=== PATIENT | male | born 1945 | race Caucasian/White ===

== ENCOUNTER 2020-08-01 | Outpatient (REF) | payer MEDICARE, SELFPAY | END 2020-08-01 00:01 | disposition home or self-care (01) | LOC: HO.VC | PROVIDERS: Visit Provider Internal Medicine | DX: Z23 Encounter for immunization (principal) | CPT/HCPCS: 0011A ==

== ENCOUNTER 2020-08-28 | Outpatient (REF) | payer MEDICARE, SELFPAY | END 2020-08-28 00:01 | disposition home or self-care (01) | LOC: HO.VC | PROVIDERS: Visit Provider Internal Medicine | DX: Z23 Encounter for immunization (principal) | CPT/HCPCS: 0012A ==

== ENCOUNTER 2021-07-22 07:57 | Outpatient (REF) | payer MEDICARE, SELFPAY ==
[2021-07-22 08:33] LABS: Hemoglobin 13.6 g/dl (14.0-18.0); Mean Corpuscular Volume 94.8 fL (80.0-98.0); Red Cell Distribution Width 13.9 % (11.0-16.0)
[2021-07-22 08:34] LABS: Hematocrit 42.1 % (42.0-52.0); Mean Corpuscular HGB Conc 32.3 g/dl (31.0-36.0); Mean Corpuscular Hemoglobin 30.6 pg (27.0-33.0); Red Blood Count 4.44 X10*6/uL (4.60-5.80); White Blood Count 8.1 X10*3/uL (4.8-10.8)
[2021-07-22 08:36] LABS: PLT ABN DIST 1
[2021-07-22 08:55] LABS: Alanine Aminotransferase 15 U/L (0-40); Albumin Level 4.4 g/dL (3.5-5.0); Alkaline Phosphatase 64 U/L (39-117); Aspartate Amino Transferase 21 U/L (5-37); Bilirubin Direct 0.5 mg/dL (0.0-0.5); Bilirubin Total 1.1 mg/dL (0.0-1.0); Cholesterol 133 mg/dL; HDL Cholesterol 33 mg/dL; LDL Cholesterol Calculated 84 mg/dl; Total Protein 6.9 g/dL (6.5-8.0); Triglycerides 81 mg/dL
[2021-07-22 08:56] LABS: Platelet Count 92 X10*3/uL (160-400)
[2021-07-22 08:58] LABS: Appearance Urine CLEAR; Color Urine YELLOW; Glucose Urine UA NEG (NEG); Leukocyte Esterase Urine NEG (NEG); Nitrite Urine NEG (NEG); Urine Blood NEG (NEG); Urine Ketones NEG (NEG); Urine Protein NEG (NEG-TRACE)
== END 2021-07-22 07:58 | disposition home or self-care (01) ==
LOC: HO.LAB 07:57
PROVIDERS: PCP Internal Medicine; Visit Provider Internal Medicine
DX: E78.00 Pure hypercholesterolemia, unspecified (principal)
CPT/HCPCS: 36415; 80061; 80076; 81003; 85027

== ENCOUNTER → 2021-09-02 13:20 | Outpatient (BNV) | payer MEDICARE, SELFPAY | PROVIDERS: PCP Internal Medicine; Referring Provider Internal Medicine; Visit Provider Internal Medicine | DX: D72.829 Elevated white blood cell count, unspecified (principal) | CPT/HCPCS: 99204; 99212; 99213; 99214; 99215; G2211 ==

== ENCOUNTER 2021-09-03 15:15 | Outpatient (REF) | payer MEDICARE, SELFPAY ==
[2021-09-03 15:46] LABS: Hematocrit 42.7 % (42.0-52.0); Hemoglobin 13.7 g/dl (14.0-18.0); Mean Corpuscular HGB Conc 32.1 g/dl (31.0-36.0); Mean Corpuscular Hemoglobin 30.2 pg (27.0-33.0); Mean Corpuscular Volume 94.1 fL (80.0-98.0); Mean Platelet Volume 13.5 fL (9.4-12.4); Red Blood Count 4.54 X10*6/uL (4.60-5.80); Red Cell Distribution Width 14.1 % (11.0-16.0)
[2021-09-03 15:59] LABS: PLT ABN DIST 1; Platelet Count 93 X10*3/uL (160-400); WBC ABN SCTR FOR CBC 1
[2021-09-03 16:00] LABS: White Blood Count 10.6 X10*3/uL (4.8-10.8)
== END 2021-09-03 15:16 | disposition home or self-care (01) ==
LOC: HO.LAB 15:15
PROVIDERS: PCP Internal Medicine; Visit Provider Internal Medicine
DX: D72.829 Elevated white blood cell count, unspecified (principal); D69.6 Thrombocytopenia, unspecified
CPT/HCPCS: 36415; 85027; 88184; 88185

== ENCOUNTER 2021-10-07 08:50 | Outpatient (REF) | payer MEDICARE, SELFPAY ==
--- NOTE | ~2021-10-07 | US_ITS ---
EXAMINATION: US ABDOMEN COMPLETE CLINICAL INFORMATION: Abnormal levels of other serum enzymes. COMPARISON: None TECHNIQUE: Real-time imaging of the abdominal viscera. FINDINGS: PANCREAS: Obscured by bowel gas. ABDOMINAL AORTA: Visualized aorta is normal in caliber however portions are obscured by bowel gas. INFERIOR VENA CAVA: Visualized portions are normal. LIVER: The liver is normal in size. The liver contour is normal. Parenchymal echogenicity is normal. No focal hepatic lesion. There is no intrahepatic biliary duct dilatation seen. GALLBLADDER: Normal. The gallbladder is physiologically distended without evidence of stones, sludge, polyps, wall thickening or pericholecystic fluid. COMMON BILE DUCT: Normal in caliber measuring 0.3 cm in diameter. RIGHT KIDNEY: Normal. No hydronephrosis. No renal calculi or focal parenchymal lesions. The kidney measures 10.1 cm in maximum dimension. LEFT KIDNEY: Normal. No hydronephrosis. No renal calculi or focal parenchymal lesions. The kidney measures 11.2 cm in maximum dimension. SPLEEN: Normal. The spleen measures 9.7 cm in maximum dimension. FREE FLUID: None. US/US abdomen complete IMPRESSION: The pancreas and portions of the aorta were obscured by bowel gas. Otherwise unremarkable abdominal ultrasound.
== END 2021-10-07 08:51 | disposition home or self-care (01) ==
LOC: HO.US 08:50
PROVIDERS: PCP Internal Medicine; Visit Provider Internal Medicine
DX: R74.8 Abnormal levels of other serum enzymes (principal); D69.6 Thrombocytopenia, unspecified
CPT/HCPCS: 76700

== ENCOUNTER 2022-09-25 07:19 | Outpatient (REF) | payer MEDICARE, SELFPAY ==
[2022-09-25 08:18] LABS: Appearance Urine Clear; Color Urine Yellow; Glucose Urine UA Negative (Negative); Leukocyte Esterase Urine Trace (Negative); Nitrite Urine Negative (Negative); Specific Gravity - Urine 1.015 (1.005-1.025); UMIC TRIGGER UA YES; Urine Blood Negative (Negative); Urine Ketones Negative (Negative); Urine Protein Trace mg/dL (Neg-Trace)
[2022-09-25 08:19] LABS: Hematocrit 40.8 % (42.0-52.0); Hemoglobin 13.1 g/dl (14.0-18.0); Mean Corpuscular HGB Conc 32.1 g/dl (31.0-36.0); Mean Corpuscular Hemoglobin 29.6 pg (27.0-33.0); Mean Corpuscular Volume 92.1 fL (80.0-98.0); Mean Platelet Volume 13.7 fL (9.4-12.4); Platelet Count 110 X10*3/uL (160-400); Red Blood Count 4.43 X10*6/uL (4.60-5.80); Red Cell Distribution Width 14.3 % (11.0-16.0); White Blood Count 16.9 X10*3/uL (4.8-10.8)
[2022-09-25 08:24] LABS: Bacteria Urine None Seen (None Seen); Hyaline Casts Urine 0-2 /LPF (0-2); RBC Urine 0-2 /HPF (0-2); Squamous Epithelial Cell Urine 0-2 /HPF (0-2); WBC Urine 0-5 /HPF (0-5)
[2022-09-25 08:52] LABS: Alanine Aminotransferase 14 U/L (0-40); Albumin Level 4.6 g/dL (3.5-5.0); Alkaline Phosphatase 64 U/L (39-117); Anion Gap 12 (12-20); Aspartate Amino Transferase 21 U/L (5-37); Bilirubin Direct 0.3 mg/dL (0.0-0.5); Bilirubin Total 1.3 mg/dL (0.0-1.0); Blood Urea Nitrogen 17 mg/dL (9-16); Calcium 9.6 mg/dL (8.4-10.2); Carbon Dioxide 29 mmol/L (22-29); Chloride 105 mmol/L (96-108); Cholesterol 117 mg/dL; Estimated Glomerular Filt Rate 53; Glucose Random 95 mg/dL (60-115); HDL Cholesterol 28 mg/dL; LDL Cholesterol Calculated 76 mg/dl; Potassium 5.1 mmol/L (3.3-5.1); Sodium 141 mmol/L (135-145); Triglycerides 66 mg/dL
[2022-09-25 09:10] LABS: Thyroid Stimulating Hormone 1.41 uIU/mL (0.32-4.0)
== END 2022-09-25 07:20 | disposition home or self-care (01) ==
LOC: HO.LAB 07:19
PROVIDERS: PCP Internal Medicine; Visit Provider Internal Medicine
DX: I10 Essential (primary) hypertension (principal); D69.6 Thrombocytopenia, unspecified; E78.00 Pure hypercholesterolemia, unspecified
CPT/HCPCS: 36415; 80048; 80061; 80076; 81001; 84443; 85027

== ENCOUNTER 2022-11-04 10:32 | Outpatient (REF) | payer MEDICARE, SELFPAY ==
--- NOTE | ~2022-11-04 | XR_ITS ---
EXAMINATION: XR CHEST CLINICAL INFORMATION: Shortness of breath. CML. Thrombocytopenia. COMPARISON: Chest radiographs 04/27/2017, 11/06/2008 TECHNIQUE: 2 views of the chest were obtained. FINDINGS: The lungs are clear and there is no airspace consolidation or groundglass opacity. The vascularity is normal. The costophrenic sulci are clear and there is no effusion. Heart is within normal size. The hilar and mediastinal contours are unremarkable. No acute bony abnormality. XR/XR chest 2V IMPRESSION: Unremarkable examination.
== END 2022-11-04 10:33 | disposition home or self-care (01) ==
LOC: HO.XRAY 10:32
PROVIDERS: PCP Internal Medicine; Visit Provider Internal Medicine
DX: R06.02 Shortness of breath (principal)
CPT/HCPCS: 71046

== ENCOUNTER 2022-11-13 09:55 | Day surgery (SDC) | payer MEDICARE, SELFPAY ==
[2022-11-13] VITALS (7 sets, daily range): BP systolic 103–156; BP diastolic 60–79; PULSE 70–95; RESP 16–20; TEMP 36.4; O2SAT 97–99; BMI 35.2
--- NOTE | ~2022-11-13 | CT_ITS ---
PROCEDURE: CT-GUIDED BIOPSY CLINICAL INFORMATION: CML. Thrombocytopenia. COMPARISON: None available. TECHNIQUE: Following explaining CT fluoroscopy-guided iliac crest biopsy procedure, benefits and risk, a written consent was obtained. Patient was placed prone on CT fluoroscopy table and preliminary CT imaging was obtained. Lead markers were placed on an optimal slice along the posterior iliac crest and repeat CT imaging was obtained. An optimal marker was selected and marked on the skin. The marker was then cleaned and draped in the usual sterile manner. 1% lidocaine was injected at puncture site. Through a small skin incision a 16-gauge guide needle was advanced from the skin to the level of posterior cortex of posterior iliac crest. A mechanical drill was attached to the needle and the needle was drilled through the cortex into the bone marrow. Subsequently 2 syringes each filled with heparin and EDTA was attached to the needle and simple bone marrow aspiration was performed. Coaxially a 19-gauge needle attached to drill was advanced into the bone marrow and a bone marrow biopsy is performed. After achieving adequate amount of bone marrow sample, the guide needle was removed and complete hemostasis achieved at puncture site. Simple Band-Aid applied postprocedure. Patient tolerated procedure extremely well. IV conscious sedation was administered and patient monitored for 15 minutes by IR nurse and the radiologist. This CT examination was performed using dose optimization techniques as appropriate, variously including the following: *Automated exposure control *Adjustment of mA and/or kV according to patient size (this includes techniques or standardized protocols for targeted exams where dose is matched to indication/reason for exam; i.e. extremities or head) *Use of iterative reconstruction technique DLP: 311 mGy-cm FINDINGS: On preliminary ultrasound imaging there is scattered stool and gas seen throughout the colon without any significant distention. The small bowel loops are normal caliber. The urinary bladder is nondistended. CT fluoroscopy-guided left iliac crest bone marrow biopsy was performed. Initially bone marrow aspiration was performed x2. CT/CT biopsy aspirate bone marrow IMPRESSION: Successful CT fluoroscopy-guided bone marrow aspiration and left posterior iliac crest biopsy performed.
[2022-11-13 10:29] LABS: Hematocrit 39.1 % (42.0-52.0); Hemoglobin 12.4 g/dl (14.0-18.0); Mean Corpuscular HGB Conc 31.7 g/dl (31.0-36.0); Mean Corpuscular Hemoglobin 29.6 pg (27.0-33.0); Mean Corpuscular Volume 93.3 fL (80.0-98.0); Mean Platelet Volume 12.7 fL (9.4-12.4); Red Blood Count 4.19 X10*6/uL (4.60-5.80); Red Cell Distribution Width 15.3 % (11.0-16.0); White Blood Count 17.1 X10*3/uL (4.8-10.8)
[2022-11-13 10:30] LABS: Platelet Count 98 X10*3/uL (160-400)
[2022-11-13 10:36] LABS: INTERNATIONAL NORM RATIO 1.2 (0.9-1.1); Prothrombin Time 13.4 SEC (10.0-13.1)
[2022-11-13 10:38] LABS: Partial Thromboplastin Time 34.6 SEC (26.0-36.4)
[2022-11-13 11:54] LABS: Band Neutrophils Percent 1 % (3-5); Basophils Abs Manual 0.2 X10*3/uL (0.0-0.2); Basophils Percent Manual 1 % (0-2); Eosinophils Absolute Manual 0.2 X10*3/uL (0.0-0.4); Eosinophils Percent Manual 1 % (0-4); Lymphocytes Absolute Manual 3.6 X10*3/uL (1.2-4.9); Lymphocytes Percent Manual 21 % (20-40); Metamyelocytes Absolute 0.3 X10*3/uL; Metamyelocytes Percent 2 %; Monocytes Absolute Manual 4.4 X10*3/uL (0.1-1.2); Monocytes Percent Manual 26 % (2-11); Myelocytes Absolute 0.2 X10*/uL; Myelocytes Percent 1 %; Neutrophils Absolute Manual 8.2 X10*3/uL (2.0-8.3); Neutrophils Percent Manual 47 % (45-73)
[2022-11-13 11:58] LABS: Polychromasia 1+ (0-2) /OIF; RBC Morphology NOTED; Spherocytes 2+ (3-5) /OIF
[2022-11-13 11:59] LABS: Platelet Estimate DECREASED (NORMAL); Platelet Morphology Comment NORMAL
[2022-11-13 12:38] LABS: Bone Marrow SEE SEPARATE REPORT
== END 2022-11-13 14:36 | disposition home or self-care (01) ==
PROVIDERS: Internal Medicine; PCP Internal Medicine; Visit Provider Radiology Diagnostic Radiology
DX: D72.829 Elevated white blood cell count, unspecified (principal); D69.6 Thrombocytopenia, unspecified; I10 Essential (primary) hypertension
CPT/HCPCS: 36415; 38221; 38222; 85007; 85025; 85027; 85610; 85730; 88184; 88185; 88237; 88264; 88305; 88311; 88313; 88341; 88342; 99152; J1642; J2250; J3010

== ENCOUNTER 2023-02-19 08:08 | Outpatient (AMB) | payer MEDICARE, SELFPAY ==
[2023-02-19 08:16] VITALS: BP 122/70; PULSE 80; O2SAT 98; BMI 36.6
--- NOTE | 2023-02-19 08:16 | A.OFFPC_ITS ---
Vital Signs 02/19/23 08:16 Height 5 ft 7 in Weight 234 lb BMI 36.6 BP 122/70 Blood Pressure Location Lt brachial Position Sitting Pulse 80 Pulse Source Pulse Oximeter Pulse Oximetry (%) 98 Oxygen Delivery Method Room Air Intake Visit Reasons: 6 month follow up Allergies No Known Allergies [No Known Allergies*] Allergy (Unknown, Verified 02/19/23 08:29) Medication List - Last Reconciled 02/19/23 by Tarik Birch MD lisinopril 10 mg PO DAILY simvastatin 20 mg PO BEDTIME Tobacco use date assessed: 08/14/22 Fall risk assessment: No Falls in past year Last assessed Fall Risk: 02/19/23 Dental Screening Dental Screen Date: 02/19/23 Did you have a dental visit in the last 12 months?: Yes Did you have a dental problem in the last 6 months where you did not have access to dental care?: No Was dental information given to patient?: Patient has dentist HPI 6 month follow up HPI Details 77 year male presents to the office to discuss his chronic medical co nditions. Patient had blood work done in December and continues to have thrombocytopenia andanemia. Compliant with medications and reporting no shortness of breath. Patient off late has been feeling a bit winded and tired. He is able to do his activities but makes him tired at the end of the day. Sleeps with 1 pillow and reports no symptoms of cough. No swelling in the feet. Also has noticed increased frequency of urination at night. [facility] Medical History (Updated 02/19/23 @ 08:38 by Tarik Birch MD) Class 2 severe obesity with body mass index (BMI) of 35 to 39.9 with serious comorbidity Essential hypertension Hypercholesterolemia Leucocytosis Surgical History History of brain surgery History of gastric surgery History of hernia surgery History of knee replacement procedure of left knee History of knee replacement procedure of right knee History of mastectomy History of tonsillectomy and adenoidectomy Family History Mother Esophageal adenocarcinoma Brother Kidney malignancy Brother Adrenal cancer Sister Bile duct cancer Social History Household Members: Spouse Housing: House Alcohol intake: current Alcohol intake frequency: 0-2 drinks per day Patient Tobacco Use Status: Former Tobacco user Tobacco use type: Cigarette e-Cigarette/Vaping Use: Never Used Second Hand Smoke Exposure: No service: No Current occupational status: retired Cognitive needs: No Hearing needs: No Vision needs: Yes (glasses) Questionnaire PHQ-9 Over the last 2 weeks, how often have you been bothered by any of the following problems? 1. Little interest or pleasure in doing things: not at all 2. Feeling down, depressed, or hopeless: not at all 3. Trouble falling or staying asleep, or sleeping too much: not at all 4. Feeling tired or having little energy: not at all 5. Poor appetite or overeating: not at all 6. Feeling bad about yourself - or that you are a failure or have let yourself or your family down: not at all 7. Trouble concentrating on things, such as reading the newspaper or watching television: not at all 8. Moving or speaking so slowly that other people could have noticed. Or the opposite - being so fidgety or restless that you have been moving around a lot more than usual: not at all 9. Thoughts that you would be better off or of hurting yourself in some way: not at all Total score: 0 Depression Screening Interpretation: Negative 04288 - PHQ-9 Billing: Yes Source: Developed by Drs. Brendon Tavarez, Maxim Moscoso and colleagues, with an educational madhu from [employer]. Thrive Questionnaire Date Thrive assessed: 08/14/22 AUDIT C Alcohol Use Questionnaire (AUDIT-C) 1. How often do you have a drink containing alcohol?: 4 or more times a week 2. How many drinks containing alcohol do you have on a typical day when you are drinking?: 1 or 2 3. How often do you have six or more drinks on one occasion?: Never Total Score: 4 HARDY-7 AMB Questionnaire HARDY-7 Date HARDY - 7 assessed: 08/14/22 Source: Developed by Drs. Brendon Tavarez, Maxim Moscoso and colleagues, with an educational madhu from [employer]. Physical exam (Primary Care) Vital Signs: Last Vital Signs Pulse 80 08/24/23 08:16 BP 122/70 02/19/23 08:16 Pulse Ox 98 02/19/23 08:16 Oxygen Delivery Method Room Air 02/19/23 08:16 Care Plan Goal for BP management: Blood pressure is in range. Continue medications at same dosage. BMI result Body Mass Index 36.6 BMI Assessment/Plan discussion: High (1 lb per week weight loss suggested.) BMI High, discussed plan: lifestyle, weight reduction and dietary Tobacco/Smoking Status: Tobacco use Status Tobacco use date assessed 08/14/22 02/19/23 08:20 Patient Tobacco Use Status Former Tobacco user 02/19/23 08:20 Tobacco use type Cigarette 02/19/23 08:20 e-Cigarette/Vaping Use Never Used 02/19/23 08:20 PHQ-9: PHQ-9 Score PHQ-9: Total score 0 02/19/23 08:20 Depression Screening Interpretation: Negative Thrive Assessment: Date of Thrive Assessment Date Thrive assessed 08/14/22 02/19/23 08:20 Const General: cooperative, healthy appearing and comfortable HENMT Head: Yes normal to inspection and Yes atraumatic Eyes General: appearance normal, both eyes and all related structures Neck Neck: Yes normal visual inspection and Yes full ROM Chest Chest palpation & inspection: normal inspection of the chest Resp Effort & Inspection: normal respiratory effort Auscultation: clear to auscultation bilaterally Cardio Jugular venous distension: no JVD Palpation: normal PMI Rate: regular rate Heart sounds: S1 normal heart sound present and S2 normal heart sound present GI Palpation (GI): Soft to palpation and No hepatosplenomegaly present Extrem General: Yes normal to inspection and Yes full ROM Assessment and Plan Assessment & Plan (1) Hypercholesterolemia: Code(s): E78.00 - Pure hypercholesterolemia, unspecified Plan: Blood work done earlier this year shows LDL in range. Continue medications at same dosage. (2) Leucocytosis: Code(s): D72.829 - Elevated white blood cell count, unspecified Plan: Recent blood work done in December shows the white count coming down. Platelet counts are stable. Patient has an appointment with the sales and marketing administrator. I encouraged him to keep the same appointment. (3) Essential hypertension: Code(s): I10 - Essential (primary) hypertension Plan: Blood pressure is in range. Continue same medications. (4) Class 2 severe obesity with body mass index (BMI) of 35 to 39.9 with serious comorbidity: Code(s): E66.01 - Morbid (severe) obesity due to excess calories Plan: Counseling on the importance of diet and exercise done. Medications: Discontinued simvastatin 20 mg PO DAILY 90 tabs 1RF Coding Level of Care Code Est Pt Level 4 (12613) Diagnoses Hypercholesterolemia E78.00 Leucocytosis D72.829 Essential hypertension I10 Class 2 severe obesity with body mass index (BMI) of 35 to 39.9 with serious comorbidity E66.01
== END 2023-02-19 08:30 | disposition home or self-care (01) ==
PROVIDERS: Visit Provider Internal Medicine
DX: E78.00 Pure hypercholesterolemia, unspecified (principal); D72.829 Elevated white blood cell count, unspecified; I10 Essential (primary) hypertension
CPT/HCPCS: 99214

== ENCOUNTER 2023-09-14 10:40 | Outpatient (AMB) | payer MEDICARE, SELFPAY ==
--- NOTE | 2023-09-14 11:09 | A.OFFPC_ITS ---
Vital Signs 09/14/23 11:11 Height 5 ft 7 in Weight 235 lb 6 oz BMI 36.9 BP 110/68 Blood Pressure Location Lt brachial Position Sitting Pulse 79 Pulse Source Pulse Oximeter Pulse Oximetry (%) 98 Oxygen Delivery Method Room Air Intake Visit Reasons: 6 month follow up Intake Note: Patient is here to follow up on HTN, Hypercholesterolemia. Senior Front End Web Developer Required: No Police Liaison Officer: Not Required per policy Accompanied by: Self / Same As Patient Allergies No Known Allergies [No Known Allergies*] Allergy (Unknown, Verified 09/16/23 06:16) Medication List - Last Reconciled 09/14/23 by Tarik Birch MD ascorbic acid (vitamin C) (Vitamin C) 250 mg PO DAILY cholecalciferol (vitamin D3) (Vitamin D3) 10 mcg PO DAILY hydroxyurea 500 mg PO DAILY multivitamin DAILY simvastatin 20 mg PO BEDTIME vitamins A,C,T-dsdt-hwnsgi 2,148 mcg-113 mg-45 mg-17.4mg (PreserVision AREDS) administer with AM and PM meals Tobacco use date assessed: 09/14/23 Fall risk assessment: No Falls in past year Last assessed Fall Risk: 09/14/23 Dental Screening Dental Screen Date: 09/14/23 Did you have a dental visit in the last 12 months?: Yes Did you have a dental problem in the last 6 months where you did not have access to dental care?: No Was dental information given to patient?: Patient has dentist HPI 6 month follow up HPI Details 78-year-old male presents to the office to discuss his chronic medical conditions. Patient continues to have baseline tinnitus and itching in the left ear. Compliant with all his medications. Reports some urinary hesitancy since the last visit. Occasional urinary incontinence. Able to function and do all activities of daily living. Continues to drive. Continues to be in charge of his finances. [facility] Medical History Class 2 severe obesity with body mass index (BMI) of 35 to 39.9 with serious comorbidity Leucocytosis Essential hypertension Hypercholesterolemia Surgical History History of gastric surgery History of hernia surgery History of tonsillectomy and adenoidectomy History of mastectomy History of brain surgery History of knee replacement procedure of right knee History of knee replacement procedure of left knee Family History Mother Esophageal adenocarcinoma Brother Kidney malignancy Brother Adrenal cancer Sister Bile duct cancer Social History Household Members: Spouse Housing: House Alcohol intake: current Alcohol intake frequency: 0-2 drinks per day Patient Tobacco Use Status: Former Tobacco user Tobacco use type: Cigarette e-Cigarette/Vaping Use: Never Used Second Hand Smoke Exposure: No service: No Current occupational status: retired Cognitive needs: No Hearing needs: No Vision needs: Yes (glasses) Questionnaire PHQ-9 Over the last 2 weeks, how often have you been bothered by any of the following problems? 1. Little interest or pleasure in doing things: not at all 2. Feeling down, depressed, or hopeless: not at all 3. Trouble falling or staying asleep, or sleeping too much: not at all 4. Feeling tired or having little energy: not at all 5. Poor appetite or overeating: not at all 6. Feeling bad about yourself - or that you are a failure or have let yourself or your family down: not at all 7. Trouble concentrating on things, such as reading the newspaper or watching television: not at all 8. Moving or speaking so slowly that other people could have noticed. Or the opposite - being so fidgety or restless that you have been moving around a lot more than usual: not at all 9. Thoughts that you would be better off or of hurting yourself in some way: not at all Total score: 0 Depression Screening Interpretation: Negative Depression Screening Done: Yes Source: Developed by Drs. Brendon Tavarez, Beckie Rizo, Maxim Zhang and colleagues, with an educational madhu from [employer]. Thrive Questionnaire Date Thrive assessed: 09/14/23 I am a: Patient What is your living situation today?: I have a steady place to live Within the past 12 months, did the food you bought not last and you didn't have the money to get more?: Never true Within the past 12 months, did you worry whether your food would run out before you got money to buy more?: Never true Do you have trouble paying for medicines?: No Do you have trouble getting transportation to medical appointments?: No Do you have trouble paying your heating and electricity bill?: No Do you have trouble taking care of your child, family member or friend?: No Do you have trouble with day-to-day activities such as bathing, preparing meals, shopping, managing finances, etc.?: No Are you currently unemployed and looking for a job?: No Are you interested in more education?: No Currently or been in a relationship where the following occur: no concerns reported THRIVE Score: 0 AUDIT C Alcohol Use Questionnaire (AUDIT-C) 1. How often do you have a drink containing alcohol?: 4 or more times a week 2. How many drinks containing alcohol do you have on a typical day when you are drinking?: 1 or 2 Total Score: 4 HARDY-7 AMB Questionnaire HARDY-7 Date HARDY - 7 assessed: 09/14/23 Feeling nervous, anxious, or on edge: 0 = Not at all Not being able to stop or control worryin = Not at all Worrying too much about different things: 0 = Not at all Trouble relaxin = Not at all Being so restless that it is hard to sit still: 0 = Not at all Becoming easily annoyed or irritable: 0 = Not at all Feeling afraid as if something awful might happen: 0 = Not at all Total HARDY-7 score (0-4 normal; 5-9 mild; 10-14 moderate; 15-21 severe): 0 Source: Developed by Drs. Brendon Tavarez, Beckie Rizo, Maxim Zhang and colleagues, with an educational madhu from [employer]. Physical exam (Primary Care) Vital Signs: Last Vital Signs Pulse 79 09/14/23 11:11 BP 110/68 09/14/23 11:11 Pulse Ox 98 09/14/23 11:11 Oxygen Delivery Method Room Air 09/14/23 11:11 Care Plan Goal for BP management: Blood pressure is in range. Continue current medications. BMI result Body Mass Index 36.9 BMI Assessment/Plan discussion: High (1 lb per week weight loss suggested.) BMI High, discussed plan: lifestyle, weight reduction and dietary Tobacco/Smoking Status: Tobacco use Status Tobacco use date assessed 09/14/23 09/14/23 11:15 Patient Tobacco Use Status Former Tobacco user 09/14/23 11:15 Tobacco use type Cigarette 09/14/23 11:15 e-Cigarette/Vaping Use Never Used 09/14/23 11:15 PHQ-9: PHQ-9 Score PHQ-9: Total score 0 09/14/23 16:17 Depression Screening Interpretation: Negative Thrive Assessment: Date of Thrive Assessment Date Thrive assessed 09/14/23 09/14/23 11:15 Currently or been in a relationship where the following occur: no concerns reported Advance Care Planning discussion: Exists, not on file Date of discussion: 09/14/23 Who was present: Patient Forms completed: Health Care Proxy Actual minutes spent: 5 Const General: cooperative and healthy appearing Nutritional Appearance: well nourished Orientation/consciousness: patient oriented x3 Limitations: no limitations HENMT Head: Yes normal to inspection Eyes General: appearance normal, both eyes and all related structures Neck Neck: Yes normal visual inspection Chest Chest palpation & inspection: normal palpation of entire chest wall Resp Effort & Inspection: normal respiratory effort Neuro General: patient oriented x3 Assessment and Plan Assessment & Plan (1) Class 2 severe obesity with body mass index (BMI) of 35 to 39.9 with serious comorbidity: Code(s): E66.01 - Morbid (severe) obesity due to excess calories Plan: Counseling on the importance of diet and exercise done. (2) Hypercholesterolemia: Code(s): E78.00 - Pure hypercholesterolemia, unspecified Plan: Blood work ordered. Will call with the results. (3) Essential hypertension: Code(s): I10 - Essential (primary) hypertension Plan: Blood pressure is in range. Continue medications at same dosage. (4) Prostatism: Code(s): N40.0 - Benign prostatic hyperplasia without lower urinary tract symptoms Plan Flomax added to the regimen. PSA to be checked. Medications: New tamsulosin (Flomax) 0.4 mg PO DAILY 90 caps 1RF Coding Level of Care Code Est Pt Level 4 (35937) Diagnoses Class 2 severe obesity with body mass index (BMI) of 35 to 39.9 with serious comorbidity E66.01 Hypercholesterolemia E78.00 Essential hypertension I10 Prostatism N40.0 Additional Codes Vital Signs *Quality* - Advance Care Planning discussion: Exists, not on file ([id number])
[2023-09-14 11:11] VITALS: BP 110/68; PULSE 79; O2SAT 98; BMI 36.9
== END 2023-09-14 11:30 | disposition home or self-care (01) ==
PROVIDERS: PCP Internal Medicine; Visit Provider Internal Medicine
DX: E78.00 Pure hypercholesterolemia, unspecified (principal); I10 Essential (primary) hypertension; E66.01 Morbid (severe) obesity due to excess calories; Z68.35 Body mass index [BMI] 35.0-35.9, adult; N40.0 Benign prostatic hyperplasia without lower urinary tract symptoms; Z00.00 Encounter for general adult medical examination without abnormal findings
CPT/HCPCS: 1123F; 99214

== ENCOUNTER 2023-09-16 11:19 | Outpatient (REF) | payer MEDICARE, SELFPAY ==
[2023-09-16 13:22] LABS: Cholesterol 104 mg/dL (<200); HDL Cholesterol 36 mg/dL (>40); LDL Cholesterol Calculated 54 mg/dL (<100); Triglycerides 72 mg/dL (<150)
[2023-09-16 13:43] LABS: Prostate Specific Antigen Scr 0.66 ng/mL (<0.05-4.0)
== END 2023-09-16 11:20 | disposition home or self-care (01) ==
LOC: HO.LAB 11:19
PROVIDERS: PCP Internal Medicine; Visit Provider Internal Medicine
DX: Z12.5 Encounter for screening for malignant neoplasm of prostate (principal); E78.00 Pure hypercholesterolemia, unspecified; N40.0 Benign prostatic hyperplasia without lower urinary tract symptoms
CPT/HCPCS: 36415; 80061; 84153

== ENCOUNTER 2023-12-03 11:31 | Day surgery (SDC) | payer MEDICARE, SELFPAY ==
--- NOTE | ~2023-12-03 | CT_ITS ---
CML worsening pancytopenia. Oncology requests a bone marrow biopsy PROCEDURES: 1. Limited preprocedure CT of the pelvis. Permanent images saved in PACS. 2. 11 g bone marrow core biopsy of the left posterior iliac spine 3. 11 g bone marrow aspirate of the left posterior iliac spine CLINICIANS: Arturo Cancino PA-C MEDICATIONS: -Versed 1 mg, Fentanyl 50 mcg, and lidocaine 1% 10 mL SQ -Antibiotics: None -For additional details, please see nursing flowsheet. COMPLICATIONS: None ESTIMATED BLOOD LOSS: < 5 ml CONTRAST: None SPECIMENS: 11 g core placed in formalin. Bone marrow aspirate placed in EDTA and sodium heparin tubes MODERATE SEDATION TIME: 17 min PROCEDURE NOTE: The procedure, risks, benefits, and alternatives were carefully explained to the patient and written informed consent was obtained. The patient was placed prone on the CT table. A timeout was performed. A limited CT of the pelvis was performed to localize posterior iliac spine and choose appropriate needle entry and trajectory. The patient was prepped and draped in usual sterile fashion. The skin, subcutaneous tissues, and periosteum were anesthetized with lidocaine. Under CT guidance, an 11-gauge bone marrow biopsy needle was advanced into the posterior iliac spine, with the tip positioned slightly cephalad. An 11-gauge core biopsy of the bone marrow was performed and was placed in formalin. Next, the 11-gauge bone marrow biopsy needle was then advanced into the posterior iliac spine, under CT guidance, with the tip positioned slightly caudal. A bone marrow aspirate was performed. The specimen was placed in the provided EDTA and sodium heparin tubes. The needle was removed. A dry dressing was applied and secured with Tegaderm. There were no immediate complications. The patient was stable after the procedure and was transferred to the post anesthesia care unit. The procedure was done under moderate sedation with a dedicated nurse for monitoring of vital signs. CT/CT biopsy asp core bone marrow Impression: CT-guided bone marrow biopsy and aspirate This procedure was performed by Arturo Cancino PA-C and supervised by Dr. Jaramillo.
[2023-12-03 11:55] VITALS: BMI 36.8
[2023-12-03 12:11] LABS: Basophils Percent Auto 0.6 % (0-2); Eosinophils Percent Auto 0.9 % (0-4); Hematocrit 28.3 % (42.0-52.0); Hemoglobin 9.4 g/dl (14.0-18.0); Lymphocytes Absolute Auto 1.3 X10*3/uL (1.2-4.9); Lymphocytes Percent Auto 40.9 % (20-40); MANUAL DIFF FLAG SCAN; Mean Corpuscular HGB Conc 33.2 g/dl (31.0-36.0); Mean Corpuscular Hemoglobin 34.9 pg (27.0-33.0); Mean Corpuscular Volume 105.2 fL (80.0-98.0); Mean Platelet Volume 12.5 fL (9.4-12.4); Monocytes Absolute Auto 0.8 X10*3/uL (0.1-1.2); Monocytes Percent Auto 25.6 % (2-11); Neutrophils Absolute Auto 1.1 x10*3/uL (2.0-8.3); Red Blood Count 2.69 X10*6/uL (4.60-5.80); Red Cell Distribution Width 15.2 % (11.0-16.0); SCAN SMEAR FLAG 1; White Blood Count 3.3 X10*3/uL (4.8-10.8)
[2023-12-03 12:13] LABS: NRBC Pct Auto 1.2 /100WBC (0.0-0.2); Platelet Count 34 X10*3/uL (160-400)
[2023-12-03 12:16] LABS: INTERNATIONAL NORM RATIO 1.1 (0.9-1.1); Prothrombin Time 13.6 SEC (11.1-13.3)
[2023-12-03 12:19] LABS: Partial Thromboplastin Time 33.8 SEC (26.0-36.8)
--- NOTE | 2023-12-03 12:47 | MHC.SHP ---
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 and worsening anemia Relevant Family History (Specify if Yes): No Relevant Social History: None Present Medications: see Short Stay Collaborative assessment Medical History: Significant History History of Previous Operations: Relevant previous surgery/procedure and date(s) (bone marrow biopsy 2022) Allergies: Allergies Allergy/AdvReac Type Severity Reaction Status Date / Time No Known Allergies Allergy Unknown Verified 12/03/23 11:54 [No Known Allergies*] Review of Systems Sugical H&P ROS: Negative: Cardiovascular, Respiratory, Neurological and Gastrointestinal Exam Surgical H&P Exam: Normal: Heart, Normal: Lungs, Normal: Skin and Normal: Neurological and Not Evaluated: HEENT Plan CT bone marrow biopsy Time Spent With Patient Time: Total time managing care of this patient today ____ minutes.
[2023-12-03 13:33] VITALS: BP 104/51; PULSE 84; RESP 16; TEMP 36.1; O2SAT 95
[2023-12-03 13:45] VITALS: BP 91/37; PULSE 71; RESP 16; O2SAT 96
[2023-12-03 14:00] VITALS: BP 91/40; PULSE 84; RESP 16; O2SAT 95
[2023-12-03 14:15] VITALS: BP 110/44; PULSE 73; RESP 16; O2SAT 95
[2023-12-03 14:19] LABS: Bone Marrow SEE SEPARATE REPORT
[2023-12-03 14:27] VITALS: BP 109/42; PULSE 73; RESP 16; TEMP 36.1; O2SAT 96
== END 2023-12-03 14:32 | disposition home or self-care (01) ==
PROVIDERS: Pathology Anatomic Pathology & Clinical Pathology; Physician Assistant Surgical; Radiology Vascular & Interventional Radiology; PCP Internal Medicine; Visit Provider Internal Medicine
PROC: (CPT 38221; principal; 2023-12-03 13:00)
DX: C93.10 Chronic myelomonocytic leukemia not having achieved remission (principal); C92.00 Acute myeloblastic leukemia, not having achieved remission; D61.818 Other pancytopenia; I10 Essential (primary) hypertension
CPT/HCPCS: 36415; 38222; 81455; 81479; 85025; 85610; 85730; 88184; 88185; 88237; 88264; 88280; 88305; 88311; 88313; 88342; 99152; J0665; J1642; J2250; J2310; J3010

== ENCOUNTER → 2023-12-03 12:41 | Outpatient (BNV) | payer MEDICARE, SELFPAY | PROVIDERS: PCP Internal Medicine; Visit Provider Physician Assistant Surgical | DX: C93.10 Chronic myelomonocytic leukemia not having achieved remission (principal) | CPT/HCPCS: 38222; 77012 ==

== ENCOUNTER 2024-02-22 11:00 | Day surgery (SDC) | payer MEDICARE, SELFPAY ==
--- NOTE | ~2024-02-22 | CT_ITS ---
AML. Oncology requests a repeat bone marrow biopsy. PROCEDURES: 1. Limited preprocedure CT of the pelvis. Permanent images saved in PACS. 2. 11 g bone marrow core biopsy of the right posterior iliac spine 3. 11 g bone marrow aspirate of the right posterior iliac spine CLINICIANS: Arturo Cancino PA-C MEDICATIONS: -Versed 2 mg, Fentanyl 100 mcg, and lidocaine 1% 10 mL SQ -Antibiotics: None -For additional details, please see nursing flowsheet. COMPLICATIONS: None ESTIMATED BLOOD LOSS: < 5 ml CONTRAST: None SPECIMENS: 11 g core placed in formalin. Bone marrow aspirate placed in EDTA and sodium heparin tubes MODERATE SEDATION TIME: 22 min PROCEDURE NOTE: The procedure, risks, benefits, and alternatives were carefully explained to the patient and written informed consent was obtained. The patient was placed prone on the CT table. A timeout was performed. A limited CT of the pelvis was performed to localize posterior iliac spine and choose appropriate needle entry and trajectory. The patient was prepped and draped in usual sterile fashion. The skin, subcutaneous tissues, and periosteum were anesthetized with lidocaine. Under CT guidance, an 11-gauge bone marrow biopsy needle was advanced into the posterior iliac spine, with the tip positioned slightly cephalad. An 11-gauge core biopsy of the bone marrow was performed and was placed in formalin. Next, the 11-gauge bone marrow biopsy needle was then advanced into the posterior iliac spine, under CT guidance, with the tip positioned slightly caudal. A bone marrow aspiration was performed. The specimen was placed in the provided EDTA and sodium heparin tubes. The needle was removed. A dry dressing was applied and secured with Tegaderm. There were no immediate complications. The patient was stable after the procedure and was transferred to the post anesthesia care unit. The procedure was done under moderate sedation with a dedicated nurse for monitoring of vital signs. CT/CT guided asp bone marrow Impression: CT-guided bone marrow biopsy and aspiration. This procedure was performed by Arturo Cancino PA-C and supervised by Dr. Jaramillo. Electronically signed by: Luiz Jaramillo MD 03/03/2024 12:31 PM EDT
[2024-02-22 11:30] VITALS: BMI 36.3
[2024-02-22 11:53] LABS: Mean Corpuscular HGB Conc 33.2 g/dl (31.0-36.0); PLT CLUMP 1; SCAN SMEAR FLAG 1
[2024-02-22 11:55] LABS: Basophils Percent Auto 0.7 % (0-2); Hematocrit 23.8 % (42.0-52.0); Hemoglobin 7.9 g/dl (14.0-18.0); Imm Gran Abs Auto 0.01 X10*3/uL (0.00-0.03); Imm Gran Pct Auto 0.7 % (0.0-0.4); Lymphocytes Absolute Auto 0.9 X10*3/uL (1.2-4.9); Lymphocytes Percent Auto 58.8 % (20-40); MANUAL DIFF FLAG SCAN; Mean Corpuscular Hemoglobin 34.1 pg (27.0-33.0); Mean Corpuscular Volume 102.6 fL (80.0-98.0); Monocytes Absolute Auto 0.2 X10*3/uL (0.1-1.2); Monocytes Percent Auto 12.2 % (2-11); Neutrophils Absolute Auto 0.4 x10*3/uL (2.0-8.3); Neutrophils Percent Auto 25.6 % (45-73); Red Blood Count 2.32 X10*6/uL (4.60-5.80); Red Cell Distribution Width 17.5 % (11.0-16.0)
[2024-02-22 11:58] LABS: INTERNATIONAL NORM RATIO 1.2 (0.9-1.1); Prothrombin Time 14.6 SEC (11.1-13.3)
[2024-02-22 12:00] LABS: NRBC Pct Auto 4.1 /100WBC (0.0-0.2)
[2024-02-22 12:01] LABS: Partial Thromboplastin Time 33.4 SEC (26.0-36.8)
[2024-02-22 12:27] LABS: Mean Platelet Volume 11.9 fL (9.4-12.4); Platelet Count 41 X10*3/uL (160-400); White Blood Count 1.5 X10*3/uL (4.8-10.8)
[2024-02-22 12:30] LABS: SLIDE REVIEW VERIFIED
--- NOTE | 2024-02-22 12:33 | MHC.SHP ---
Pre-Procedural Eval Section A - 24 Hr Update-Section A only Date of Service: 02/22/24 Section B - Complete if H&P > 30 days Chief Complaint: BONE MARROW, STAT. ACUTE MYELOBLASTIC LEUKEMIA Details of Present Illness: 78 y/o man with AML. Oncology requests a repeat bone marrow biopsy Relevant Family History (Specify if Yes): No Relevant Social History: None Present Medications: see Short Stay Collaborative assessment Medical History: Significant History History of Previous Operations: Relevant previous surgery/procedure and date(s) Allergies: Allergies Allergy/AdvReac Type Severity Reaction Status Date / Time No Known Allergies Allergy Unknown Verified 01/18/24 10:37 [No Known Allergies*] Review of Systems Sugical H&P ROS: Negative: Constitution, Cardiovascular and Respiratory and Yes, Specify: Hem-Onc (AML) Exam Surgical H&P Exam: Normal: Heart, Normal: Lungs, Normal: Skin and Normal: Neurological Plan 78 y/o man with AML -CT bone marrow biopsy Time Spent With Patient Time: Total time managing care of this patient today ____ minutes.
[2024-02-22 12:52] VITALS: BP 127/67; PULSE 85; RESP 16; TEMP 36.8; O2SAT 98
[2024-02-22 14:00] VITALS: BP 117/55; PULSE 79; RESP 14; TEMP 36.6; O2SAT 94
[2024-02-22 14:15] VITALS: BP 126/67; PULSE 80; RESP 18; O2SAT 99
[2024-02-22 14:23] LABS: Bone Marrow SEE SEPARATE REPORT
== END 2024-02-22 14:30 | disposition home or self-care (01) ==
PROVIDERS: Physician Assistant Surgical; PCP Internal Medicine; Visit Provider Internal Medicine
PROC: (CPT 38221; principal; 2024-02-22 13:00)
DX: C92.00 Acute myeloblastic leukemia, not having achieved remission (principal); D69.6 Thrombocytopenia, unspecified; I10 Essential (primary) hypertension; E78.00 Pure hypercholesterolemia, unspecified; E66.01 Morbid (severe) obesity due to excess calories; Z68.37 Body mass index [BMI] 37.0-37.9, adult
CPT/HCPCS: 36415; 38220; 85025; 85610; 85730; 88184; 88185; 88305; 88311; 88313; 88341; 88342; 99152; J2250; J2310; J3010

== ENCOUNTER → 2024-02-22 12:52 | Outpatient (BNV) | payer MEDICARE, SELFPAY | PROVIDERS: PCP Internal Medicine; Visit Provider Student in an Organized Health Care Education/Training Program | DX: C92.00 Acute myeloblastic leukemia, not having achieved remission (principal) | CPT/HCPCS: 38222; 77012 ==

== ENCOUNTER 2024-03-17 13:49 | Outpatient (AMB) | payer MEDICARE, SELFPAY ==
--- NOTE | 2024-03-17 13:56 | A.OFFPC_ITS ---
Vital Signs 03/17/24 13:57 Height 5 ft 7 in Weight 230 lb 2 oz BMI 36.0 BP 112/60 Blood Pressure Location Lt brachial Position Sitting Pulse 94 Pulse Source Pulse Oximeter Pulse Oximetry (%) 96 Oxygen Delivery Method Room Air Intake Visit Reasons: 6mth f/u Intake Note: Patient is here to follow up on HTN, Hypercholesterolemia. 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 Patient reports that he is having a irritating nonproductive cough for the past the past few months. Symptoms are worse at night. He is also having reflux disease, especially when he eats late or eats spicy food. No nausea or vomiting. 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 He is receiving chemotherapy which he is not tolerating very well. In between patient receives regular transfusions of blood and platelets. Continues to do all activities of daily living including driving. [facility] Medical History (Updated 03/17/24 @ 14:32 by Tarik Birch MD) GERD (gastroesophageal reflux disease) Class 2 severe obesity with body mass index (BMI) of 35 to 39.9 with serious comorbidity Leucocytosis Essential hypertension Hypercholesterolemia Surgical History (Updated 03/17/24 @ 14:15 by Tarik Birch MD) History of colonoscopy (~03/14/22) History of gastric surgery History of hernia surgery History of tonsillectomy and adenoidectomy History of mastectomy History of brain surgery History of knee replacement procedure of right knee History of knee replacement procedure of left knee Family History Mother Esophageal adenocarcinoma Brother Kidney malignancy Brother Adrenal cancer Sister Bile duct cancer Social History Household Members: Spouse Housing: House Alcohol intake: current Alcohol intake frequency: 0-2 drinks per day Patient Tobacco Use Status: Former Tobacco user Tobacco use type: Cigarette e-Cigarette/Vaping Use: Never Used Second Hand Smoke Exposure: No service: No Current occupational status: retired Cognitive needs: No Hearing needs: No Vision needs: Yes (glasses) Questionnaire Thrive Questionnaire Date Thrive assessed: 09/14/23 Are you currently unemployed and looking for a job?: No AUDIT C Alcohol Use Questionnaire (AUDIT-C) 2. How many drinks containing alcohol do you have on a typical day when you are drinking?: 1 or 2 3. How often do you have six or more drinks on one occasion?: Never Total Score: 0 HARDY-7 AMB Questionnaire HARDY-7 Date HARDY - 7 assessed: 09/14/23 Source: Developed by Drs. Brendon Tavarez, Beckie Rizo, Maxim Zhang and colleagues, with an educational madhu from [employer]. Physical exam (Primary Care) Vital Signs: Last Vital Signs Pulse 94 03/17/24 13:57 BP 112/60 03/17/24 13:57 Pulse Ox 96 03/17/24 13:57 Oxygen Delivery Method Room Air 03/17/24 13:57 Care Plan Goal for BP management: Blood pressure is in range. BMI result Body Mass Index 36.0 BMI Assessment/Plan discussion: High Tobacco/Smoking Status: Tobacco use Status Tobacco use date assessed 03/17/24 03/17/24 14:04 Patient Tobacco Use Status Former Tobacco user 03/17/24 14:04 Tobacco use type Cigarette 03/17/24 14:04 e-Cigarette/Vaping Use Never Used 03/17/24 14:04 Thrive Assessment: Date of Thrive Assessment Date Thrive assessed 09/14/23 03/17/24 14:04 Advance Care Planning discussion: Exists, not on file Const General: cooperative and healthy appearing Nutritional Appearance: well nourished Orientation/consciousness: patient oriented x3 Limitations: no limitations HENMT Head: Yes normal to inspection Eyes General: appearance normal, both eyes and all related structures Neck Neck: Yes normal visual inspection Chest Chest palpation & inspection: normal palpation of entire chest wall Resp Effort & Inspection: normal respiratory effort Neuro General: patient oriented x3 Results AMB Hemoglobin A1c AMB Hemoglobin A1c 5.8 % Last Edit by HARRISON Tenorio on 03/17/24 14:09 Results Reviewed Results Reviewed: Laboratory Last Values Hgb A1c (Clinic) 5.8 % (4.0-6.0) 03/17/24 13:56 Assessment and Plan Assessment & Plan (1) Essential hypertension: Code(s): I10 - Essential (primary) hypertension Plan: Blood pressure is in range. Lisinopril is being discontinued. Losartan is being replaced as patient is experiencing nonproductive cough that can be considered an allergy or a side effect to VIC inhibitors. (2) GERD (gastroesophageal reflux disease): Code(s): K21.9 - Gastro-esophageal reflux disease without esophagitis Plan: Pantoprazole is being added to the regimen. 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 (4) Cough: Code(s): R05.9 - Cough, unspecified Plan: Cough could be due to a variety of reasons. VIC inhibitor use related cough can be a reason. The Vic has been shifted to an ARB. Reflux disease can cause nonproductive cough and ppi has been added to the regimen. (5) Hyperglycemia: Code(s): R73.9 - Hyperglycemia, unspecified Plan A1c is in range. Orders: Orders AMB Hemoglobin A1c Today E66.01 - Morbid (severe) obesity due to excess calories Coding Level of Care Code Est Pt Level 4 (62701) Complex EM visit Add On G2211 Diagnoses Essential hypertension I10 GERD (gastroesophageal reflux disease) K21.9 Acute myeloblastic leukemia C92.00 Cough R05.9 Hyperglycemia R73.9 Additional Codes Vital Signs *Quality* - Advance Care Planning discussion: Exists, not on file ([id number])
[2024-03-17 13:57] VITALS: BP 112/60; PULSE 94; O2SAT 96; BMI 36.0
== END 2024-03-17 14:26 | disposition home or self-care (01) ==
PROVIDERS: PCP Internal Medicine; Visit Provider Internal Medicine
DX: I10 Essential (primary) hypertension (principal); C92.00 Acute myeloblastic leukemia, not having achieved remission; E66.01 Morbid (severe) obesity due to excess calories; Z68.36 Body mass index [BMI] 36.0-36.9, adult; K21.9 Gastro-esophageal reflux disease without esophagitis; R05.9 Cough, unspecified; R73.9 Hyperglycemia, unspecified; Z00.00 Encounter for general adult medical examination without abnormal findings

== ENCOUNTER → 2024-03-17 13:49 | Outpatient (BNVA) | payer MEDICARE, SELFPAY | PROVIDERS: PCP Internal Medicine; Visit Provider Internal Medicine | DX: R73.9 Hyperglycemia, unspecified (principal); I10 Essential (primary) hypertension; K21.9 Gastro-esophageal reflux disease without esophagitis; C92.00 Acute myeloblastic leukemia, not having achieved remission; R05.9 Cough, unspecified | CPT/HCPCS: 83036; 99212 ==

== ENCOUNTER 2024-03-31 10:57 | Day surgery (SDC) | payer MEDICARE, SELFPAY ==
--- NOTE | ~2024-03-31 | CT_ITS ---
CML worsening pancytopenia. Oncology requests a bone marrow biopsy PROCEDURES: 1. Limited preprocedure CT of the pelvis. Permanent images saved in PACS. 2. 11 g bone marrow core biopsy of the right posterior iliac spine 3. 11 g bone marrow aspirate of the right posterior iliac spine CLINICIANS: Arturo Cancino PA-C MEDICATIONS: -Versed Fentanyl and lidocaine 1% 10 mL SQ -Antibiotics: None -For additional details, please see nursing flowsheet. COMPLICATIONS: None ESTIMATED BLOOD LOSS: < 5 ml CONTRAST: None SPECIMENS: 11 g core placed in formalin. Bone marrow aspirate placed in EDTA and sodium heparin tubes MODERATE SEDATION TIME: 30 in PROCEDURE NOTE: The procedure, risks, benefits, and alternatives were carefully explained to the patient and written informed consent was obtained. The patient was placed prone on the CT table. A timeout was performed. A limited CT of the pelvis was performed to localize posterior iliac spine and choose appropriate needle entry and trajectory. The patient was prepped and draped in usual sterile fashion. The skin, subcutaneous tissues, and periosteum were anesthetized with lidocaine. Under CT guidance, an 11-gauge bone marrow biopsy needle was advanced into the posterior iliac spine, with the tip positioned slightly cephalad. An 11-gauge core biopsy of the bone marrow was performed and was placed in formalin. Next, the 11-gauge bone marrow biopsy needle was then advanced into the posterior iliac spine, under CT guidance, with the tip positioned slightly caudal. A bone marrow aspirate was performed. The specimen was placed in the provided EDTA and sodium heparin tubes. The needle was removed. A dry dressing was applied and secured with Tegaderm. There were no immediate complications. The patient was stable after the procedure and was transferred to the post anesthesia care unit. The procedure was done under moderate sedation with a dedicated nurse for monitoring of vital signs. CT/CT biopsy asp core bone marrow Impression: CT-guided bone marrow biopsy and aspirate Electronically signed by: Luiz Jaramillo MD 05/16/2024 01:58 PM [facility] [place]
[2024-03-31 11:38] VITALS: BMI 36.0
[2024-03-31 11:39] VITALS: BP 119/60; PULSE 87; RESP 16; TEMP 36.6; O2SAT 98
[2024-03-31 13:35] VITALS: BP 138/69; PULSE 76; RESP 14; TEMP 36.4; O2SAT 98
[2024-03-31 13:50] VITALS: BP 142/72; PULSE 78; RESP 16; TEMP 36.1; O2SAT 98
[2024-03-31 14:00] LABS: Bone Marrow SEE SEPARATE REPORT
== END 2024-03-31 14:11 | disposition home or self-care (01) ==
PROVIDERS: Physician Assistant Surgical; PCP Internal Medicine; Visit Provider Internal Medicine
PROC: (CPT 38221; principal; 2024-03-31 12:30)
DX: C92.00 Acute myeloblastic leukemia, not having achieved remission (principal); E66.01 Morbid (severe) obesity due to excess calories; I10 Essential (primary) hypertension; E78.00 Pure hypercholesterolemia, unspecified; K21.9 Gastro-esophageal reflux disease without esophagitis; Z79.899 Other long term (current) drug therapy; Z98.890 Other specified postprocedural states; Z87.891 Personal history of nicotine dependence; Z68.36 Body mass index [BMI] 36.0-36.9, adult
CPT/HCPCS: 36415; 38222; 88184; 88185; 88237; 88264; 88280; 88305; 88311; 88313; 88342; 99152; J2003; J2250; J2310; J3010

== ENCOUNTER → 2024-03-31 12:44 | Outpatient (BNV) | payer MEDICARE, SELFPAY | PROVIDERS: PCP Internal Medicine; Visit Provider Student in an Organized Health Care Education/Training Program | DX: C92.00 Acute myeloblastic leukemia, not having achieved remission (principal); D61.818 Other pancytopenia | CPT/HCPCS: 38222; 77012; 99152 ==

== ENCOUNTER 2024-06-21 14:18 | Outpatient (REF) | payer MEDICARE, SELFPAY ==
[2024-06-21 15:08] LABS: Influenza A PCR NEGATIVE (Negative); Influenza B PCR NEGATIVE (Negative); Resp Syncy Virus RNA Qual PCR NEGATIVE (Negative); SARS COV2 PCR INHOUSE POSITIVE (Negative)
== END 2024-06-21 14:19 | disposition home or self-care (01) ==
LOC: HO.LAB 14:18
PROVIDERS: PCP Internal Medicine; Visit Provider Internal Medicine
DX: C92.00 Acute myeloblastic leukemia, not having achieved remission (principal)
CPT/HCPCS: 0241U

== ENCOUNTER 2024-06-27 13:03 | Outpatient (REF) | payer MEDICARE, SELFPAY ==
[2024-06-27 13:51] LABS: Influenza A PCR NEGATIVE (Negative); Influenza B PCR NEGATIVE (Negative); Resp Syncy Virus RNA Qual PCR NEGATIVE (Negative); SARS COV2 PCR INHOUSE NEGATIVE (Negative)
== END 2024-06-27 13:04 | disposition home or self-care (01) ==
LOC: HO.LAB 13:03
PROVIDERS: PCP Internal Medicine; Visit Provider Internal Medicine
DX: C92.00 Acute myeloblastic leukemia, not having achieved remission (principal)
CPT/HCPCS: 0241U

== ENCOUNTER 2024-07-19 15:18 | Outpatient (REF) | payer MEDICARE, SELFPAY ==
--- OUTSIDE RECORDS SUMMARY | 2024-07-19 17:17 | XMS_ITS ---
Author Name Interface, [id number] lity Address [address] [place] [address] Organization [facility] Address [address] [place] [address] Care Team Providers Care Dredge Engineer Name Role Phone Guero Mata Unavailable Unavailable Plan Date Type Value 01/11/2024 APPOINTMENT LAB 15 MIN 01/11/2024 APPOINTMENT TREATMENT 1 HR 01/04/2024 APPOINTMENT LAB 15 MIN 01/04/2024 APPOINTMENT PBR 30 MIN 01/04/2024 APPOINTMENT NEW PT CONSULT 6 0 MIN 01/04/2024 LABORDER CBC w/ auto diff 01/04/2024 LABORDER CMP 01/04/2024 LABORDER Uric acid 01/11/2024 LABORDER CBC w/ auto diff 01/11/2024 LABORDER CMP 01/11/2024 LABORDER Uric acid Reason for Visit TREATMENT 1 HR Encounters Date Name 01/04/2024 AML Diagnostic Results Date Type Test Units Lower Limit Upper Limit Result Flag Comments Status Ordered By Specimen Source Lab Address 01/03 Uric acid mg/dl 3.7 9.2 4.5 FINAL Guero Mata [facility], [address], [place] 01/03 CMP Sodiu m mmol/l 136.0 145.0 141 FINAL Guero THOMPSON [employer], [address], [place]/03 CMP Potas sium mmol/l 3.5 5.1 4.7 FINAL Guero THOMPSON [employer], [address], [place]/03 CMP CO2 mmol/l 20.0 31.0 31 FINAL Guero THOMPSON [facility], [address], [place] 01/03 CMP Chlor prashanth mmol/l 98.0 107.0 107 [facility]AL [facility], [address], [place] 01/03 CMP BUN mg/dl 9.0 23.0 18 FINAL [employer] JAY [facility], [address], [place] 01/03 CMP Creat inine mg/dl 0.7 1.3 1.000 FINAL [facility], [address], [place] 01/03 CMP GFR estim ate 77.68 FINAL [facility] JAY [facility], [address], [place] 01/03 CMP Gluco se mg/dl 74.0 106.0 99 FINAL [facility] JAY [facility], [address], [place] 01/03 CMP Calci um mg/dl 8.7 10.4 9.4 FINAL [facility] JAY [facility], [address], [place] 01/03 CMP Album in g/dl 3.4 5.0 4.2 FINAL [facility] JAY [facility], [address], [place] 01/03 CMP Bilir ubin, total mg/dl 0.3 1.2 2.1 High FINAL [facility] JAY [facility], [address], [place] 01/03 CMP Total prote in g/dl 5.7 8.2 6.9 FINAL [facility] SmithMata JAY [facility], [address], [place] 01/03 CMP AST/S GOT [iU]/L 0.0 34.0 18 FINAL [facility] J[facility], [address], [place] 01/03 CMP ALT/S GPT [iU]/L 10.0 49.0 11 FINAL [facility] Adolfo THOMPSON [facility], [address], [place] 01/03 CMP Alkal ine phosp hatas e [iU]/L 46.0 160.0 65 FINAL [facility], [address], [place] 01/03 CBC WBC 10*3/u L 4.4 10.9 1.5 Repeate d Criti carlita Low FINAL Gradon Mata [facility] [address] 01/03 CBC RBC 10*6/u L 4.5 6.0 2.46 Low FINAL Gradon Mata [facility] [address] 01/03 CBC HGB g/dL 14.0 17.0 8.3 Low FINAL Gradon Mata [facility] [address] 01/03 CBC HCT % 40.0 54.0 25.5 Low FINAL Gradon Mata [facility] [address] 01/03 CBC MCV fl 80.0 97.0 104 High FINAL Gradon Mata [facility] [address] 01/03 CBC MCH pg 27.0 31.2 33.7 High FINAL Gradon Mata [facility] cess [address] 01/03 CBC MCHC g/dL 31.8 35.4 32.5 FINAL Gradon Mata [facility] cess [address] 01/03 CBC PLT 10*3/u L 140.0 440.0 18 Repeate d Criti carlita Low FINAL Gradon Mata [facility] [address] 01/03 CBC MPV fl 7.5 11.5 12.30 High FINAL Gradon Mata [facility] [address] 01/03 CBC Rustam # (ANC) 10*3/u L 2.0 6.9 0.21 Low FINAL Gradon Mata [facility] [address] 01/03 CBC LY # 10*3/u L 0.6 3.4 0.95 FINAL Gradon Mata [facility] cess [address] 01/03 CBC MO # 10*3/u L 0.0 0.9 0.30 FINAL Gradon Mata [facility]Pr[facility] cess [address] 01/03 CBC EO # 10*3/u L 0.0 0.7 0.01 FINAL Gradon Mata [facility]Prin cess [address] 01/03 CBC BA # 10*3/u L 0.0 0.2 0.01 FINAL Gradon Mata [facility]Prin cess [address] 01/03 CBC Rustam % % 37.0 80.0 14.1 Low FINAL Gradon Mata [facility] cess [address] 01/03 CBC LY % % 10.0 50.0 64.2 High FINAL Gradon Mata [facility]Prin cess [address] 01/03 CBC MO % % 0.0 12.0 20.3 High FINAL Gradon Mata [facility]Pr[facility] cess [address] 01/03 CBC EO % % 0.0 7.0 0.7 FINAL Gradon Mata [facility]Prin cess [address] 01/03 CBC BA % % 0.0 2.5 0.7 FINAL Gradon Mata [facility]Pr[facility] , [address] 01/03 CBC RDW % 11.6 14.8 16.7 High FINAL Guero KELLEYA-Prin cess [place], [address] 01/10 CMP Sodiu m mmol/l 136.0 145.0 141 FINAL Gradmigue THOMPSON [facility], [address], [place] 01/10 CMP Potas sium mmol/l 3.5 5.1 4.3 FINAL Gradmigue THOMPSON [facility], [address], [place] 01/10 CMP CO2 mmol/l 20.0 31.0 31 FINAL Gradmigue THOMPSON [facility], [address], [place] 01/10 CMP Chlor prashanth mmol/l 98.0 107.0 106 FINAL Gradmigue THOMPSON [facility], [address], [place] 01/10 CMP BUN mg/dl 9.0 23.0 20 FINAL Gradmigue SmithMata JAY [facility], [address], [place] 01/10 CMP Creat inine mg/dl 0.7 1.3 1.160 FINAL [facility] SmithMata JAY [facility], [address], [place] 01/10 CMP GFR estim ate 65.00 FINAL Gradon Mata JAY [facility], [address], [place] 01/10 CMP Gluco se mg/dl 74.0 106.0 105 FINAL Guero THOMPSON [facility], [address], [place] 01/10 CMP Calci um mg/dl 8.7 10.4 9.3 FINAL [facility], [address], [place] 01/10 CMP Album in g/dl 3.4 5.0 4.4 FINAL Gradon Mata SER [facility], [address], [place] 01/10 CMP Bilir ubin, total mg/dl 0.3 1.2 2.7 High FINAL [facility], [address], [place] 01/10 CMP Total prote in g/dl 5.7 8.2 7.0 FINAL Gradon Mata SER [facility], [address], [place] 01/10 CMP AST/S GOT [iU]/L 0.0 34.0 19 FINAL Gradon Adolfo THOMPSON [facility], [address], [place] 01/10 CMP ALT/S GPT [iU]/L 10.0 49.0 11 FINAL Gradon Mata JAY [facility], [address], [place] 01/10 CMP Alkal ine phosp hatas e [iU]/L 46.0 160.0 74 FINAL Gradon Mata JAY [facility], [address], [place] 01/10 Uric acid mg/dl 3.7 9.2 5.1 FINAL Gradon Adolfo THOMPSON [facility], [address], [place] 01/10 CBC WBC 10*3/u L 4.4 10.9 2.4 Low FINAL Gradon Mata [facility]Pr[facility] cess [address] 01/10 CBC RBC 10*6/u L 4.5 6.0 2.44 Low FINAL Gradon Mata [facility]Prin cess [address] 01/10 CBC HGB g/dL 14.0 17.0 8.2 Low FINAL Gradon Mata [facility]Prin cess [address] 01/10 CBC HCT % 40.0 54.0 25.6 Low FINAL Gradon Mata [facility]Prin cess [address] 01/10 CBC MCV fl 80.0 97.0 105 High FINAL Gradon Mata [facility]Prin cess [address] 01/10 CBC MCH pg 27.0 31.2 33.6 High FINAL Gradon Mata [facility]Prin cess [address] 01/10 CBC MCHC g/dL 31.8 35.4 32.0 FINAL Gradon Mata [facility]Prin cess [address] 01/10 CBC PLT 10*3/u L 140.0 440.0 43 Repeate d Criti carlita Low FINAL Gradon Mata [facility]Prin cess [address] 01/10 CBC MPV fl 7.5 11.5 11.30 FINAL Gradon Mata [facility]Prin cess [address] 01/10 CBC Rustam # (ANC) 10*3/u L 2.0 6.9 1.12 Low FINAL Gradon Mata [facility]Pr[facility] cess [address] 01/10 CBC LY # 10*3/u L 0.6 3.4 1.03 FINAL Gradon Mata [facility]Prin cess [address] 01/10 CBC MO # 10*3/u L 0.0 0.9 0.20 FINAL Gradon Mata [facility]Prin cess [address] 01/10 CBC EO # 10*3/u L 0.0 0.7 0.01 FINAL Gradon Mata [facility]Prin cess [address] 01/10 CBC BA # 10*3/u L 0.0 0.2 0.03 FINAL Gradon Mata [facility]Pr[facility] cess [place] 01/10 CBC Rustam % % 37.0 80.0 46.8 FINAL Guero Mata [facility]Pr[facility] [place] 01/10 CBC LY % % 10.0 50.0 43.1 FINAL Guero Mata [facility]Pr[facility] cess [place] 01/10 CBC MO % % 0.0 12.0 8.4 FINAL Guero Mata [facility]-Prin cess [place] 01/10 CBC EO % % 0.0 7.0 0.4 FINAL Guero Mata [facility]Prin cess [address] 01/10 CBC BA % % 0.0 2.5 1.3 FINAL Guero Mata [facility]Prin cess [address] 01/10 CBC RDW % 11.6 14.8 18.2 High FINAL Guero Mata [facility]Prin cess [address] Medications Date Name Route Dose Frequency Instructions Start Date End Date Status Acyclovir Oral 1.0 tablet once a day active Simvastatin Oral 1.0 tablet once a day active Lisinopril Oral 1.0 tablet once a day active Allopurinol Oral 1.0 tablet once a day active Problems Diagnosis Status Date of Diagnosi s AML Active Vital Signs Date Type Value 01/04/2024 Body Temperature 97.30 01/04/2024 Heart Beat 80.00 01/04/2024 BSA 2.25 01/04/2024 BMI 37.12 01/04/2024 Height 67.00 01/04/2024 Weight 237.00 01/04/2024 Pain Scale 0.00 01/04/2024 Intravascular Systolic 128 01/04/2024 Intravascular Diastolic 64 01/04/2024 Oxygen Saturation 98.00 01/04/2024 Respiratory Rate 14.00 01/11/2024 Body Temperature 97.30 01/11/2024 BMI 37.31 01/11/2024 Height 67.00 01/11/2024 Weight 238.20 01/11/2024 BSA 2.26 01/11/2024 Intravascular Systolic 120 01/11/2024 Intravascular Diastolic 62 01/11/2024 Oxygen Saturation 98.00 01/11/2024 Respiratory Rate 18.00 01/11/2024 Heart Beat 95.00 01/11/2024 Pain Scale 0.00 Notes Section * Consult Patient Name: DOUG CARTER Location: [facility] : 1945 Seen By:?? Guero Mata MD Attending Provider: Guero Escalante Date of Service: 01/04/2024 Note to patient:??The purpose of this note is to communicate optimally with the other providers involved in your care. It is written using standard medical terminology. If you have questions regarding details of the note, please schedule an appointment to discuss your concerns. Dear ?, Thank you for referring your patient,DOUG CARTER, to us for consultation and evaluation regarding AML . The following constitutes our initial summary of their visit. 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 Patient was found to be thrombocytopenic and 2021.?? Blood counts were downtrending so bone marrow biopsy was performed 11/13/2022 which did not show any increase in blasts.?? [employer] myeloid panel showed ASXL1, BRAF L597, SRS F2, P95H, TET Q 731T.?? No alterations in FLT3, IDH 1, IDH 2, NPM1.??She was started on hydroxyurea 500 mg once daily in March 2023 and continue this until September 2023.?? 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 Blasts were 27% of the aspirate.?? Repeat NGS testing was requested.?? He was started on azacitidine 75 mg/m?? for days 1 through 7 with venetoclax.?? He was started on antimicrobial prophylaxis with ciprofloxacin 500 mg twice daily and acyclovir 400 mg twice daily. Patient began treatment with subcutaneous azacitidine on 12/14/2023.?? He began p.o. venetoclax on 12/20 along with allopurinol and acyclovir. Did not receive aztizanidine on day 6 or 7 of treatment due to severe cytopenia and requirement of blood transfusion.?? He was started on venetoclax but asked to stay on the 200 mg daily dose. Venetoclax was then held the week of Just because of cytopenias.?? Most recent labs on 12/16/2023 showed hemoglobin of 8.5, white blood cell count of 3.2 and platelet count of 24.?? PTT and INR within normal limits.?? Creatinine was also normal. Past Medical History: HTN, HLD and BPH AML Medications: ? Allergies: ? Family History: ?Mother had esophageal cancer Brother had kidney cancer Sister had kidney cancer Sister with melanoma Brother with adrenal caner Social History: ?[facility]. Quit smoking 1989. Drinks etoh daily.?? Vitals: Blood pressure: 128/64, Sitting, L arm, Regular, Pulse: 80, Temperature: 97.3 F, Respirations: 14, O2 sat: 98%, At Rest, Room Air, Pain Scale: 0, Height: 67 in, Weight: 237 lb, BSA: 2.25, BMI: 37.12 kg/m2 Physical Exam: Gen: A/O x 3, no acute distress HEENT:?? PERRLA, anicteric, no oral lesions, mmm, no LAD CV:?? RRR no murmurs Pulm:?? CTAB no wheeze, rales GI:?? +BS, non-tender, no HSM, no masses Ext:?? no joint deformities, normal ROM Skin: no rashes Neuro: no focal deficits Psych: normal affect Impression and Plan: AML -Bone marrow biopsy was performed 11/13/2022 which did not show any increase in blasts.?? [employer] myeloid panel showed ASXL1, BRAF L597, SRS F2, P95H, TET Q 731T.?? No alterations in FLT3, IDH 1, IDH 2, NPM1.?? She was started on hydroxyurea 500 mg once daily in March 2023 and continue this until September 2023.?? 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 Blasts were 27% of the aspirate.?? Repeat NGS testing was requested.? -Started on azacitidine 75 mg/m?? for days 1 through 7 with venetoclax.?? He was started on antimicrobial prophylaxis with ciprofloxacin 500 mg twice daily and acyclovir 400 mg twice daily. -Patient began treatment with subcutaneous azacitidine on 12/14/2023.?? He began p.o. venetoclax on 12/20 along with allopurinol and acyclovir. -Did not receive atizanidine on day 6 or 7 of treatment due to severe cytopenia and requirement of blood transfusion.?? He was started on venetoclax but asked to stay on the 200 mg daily dose. -Most recent labs on 12/16/2023 showed hemoglobin of 8.5, white blood cell count of 3.2 and plateletcount of 24.?? PTT and INR within normal limits.?? Creatinine was also normal. -Patient established [facility] Radha Vick at [facility]. Her phone is [phone].-Will check labs today and arrange blood transfusion for hgb <7 and plt <10.?? -Patient plans to return to [place] in 2 weeks but he will come back to [place] next year.?? Told him we would be happy to check his labs again when he is here. CC: ? * AML Laboratory: Lab Results 01/04/2024 ?CBC ?WBC x 10^3/uL 1.5 Repeated (LL) ?RBC x 10^6/uL 2.46 (L) ?HGB g/dL 8.3 (L) ?HCT % 25.5 (L) ?MCV fL 104 (H) ?MCH pg 33.7 (H) ?MCHC g/dL 32.5 ?RDW % 16.7 (H) ?PLT x 10^3/uL 18 Repeated (LL) ?MPV fL 12.30 (H) ?Rustam % 14.1 (L) ?LY % 64.2 (H) ?MO % 20.3 (H) ?EO % 0.7 ?Rustam # (ANC) x 10^3/uL 0.21 (L) ?BA % 0.7 ?MO # x 10^3/uL 0.30 ?EO # x 10^3/uL 0.01 ?BA # x 10^3/uL 0.01 ?LY # x 10^3/uL 0.95 ? New Orders: * 01/04/2024, RTC nurse, Instructions: arrange blood transfusion for hgb<7 or plt 10. , Perform Date: 01/11/2024 * 01/04/2024, CBC w/ auto diff, Perform Date: 01/04/2024 * 01/04/2024, CBC w/ auto diff, Perform Date: 01/11/2024 * 01/04/2024, CMP, Perform Date: 01/04/2024 * 01/04/2024, CMP, Perform Date: 01/11/2024 * 01/04/2024, Uric acid, Perform Date: 01/04/2024 * 01/04/2024, Uric acid, Perform Date: 01/11/2024 ? Guero Mata MD Electronically signed by Guero Mata MD 01/04/2024 15:42 EDT
--- OUTSIDE RECORDS SUMMARY | 2024-07-19 17:17 | XMS_ITS ---
Author Name Interface, [id number] lity Address [address] [place] [address] Organization [facility] Address [address] [place] [address] Care Team Providers Care Technical Lead Name Role Phone Guero Mata Unavailable Unavailable [...] 3.7 9.2 4.5 FINAL Guero Mata SER [facility], [address], [place] 01/03 CMP Sodiu m mmol/l 136.0 145.0 141 FINAL Guero THOMPSON [facility], [address], [place]03 CMP Potas sium mmol/l 3.5 5.1 4.7 FINAL Guero THOMPSON [employer], [address], [place]/03 CMP CO2 mmol/l 20.0 31.0 31 FINAL Guero THOMPSON [facility], [address], [place] 01/03 CMP Chlor prashanth mmol/l 98.0 107.0 107 [facility]AL [facility], [address], [place] 01/03 CMP BUN mg/dl 9.0 23.0 18 FINAL [facility], [address], [place] 01/03 CMP Creat inine mg/dl 0.7 1.3 1.000 FINAL [facility], [address], [place] 01/03 CMP GFR estim ate 77.68 FINAL [facility], [address], [place] 01/03 CMP Gluco se mg/dl 74.0 106.0 99 FINAL [facility], [address], [place] 01/03 CMP Calci um mg/dl 8.7 10.4 9.4 FINAL [facility], [address], [place] 01/03 CMP Album in g/dl 3.4 5.0 4.2 FINAL [facility], [address], [place] 01/03 CMP Bilir ubin, total mg/dl 0.3 1.2 2.1 High FINAL [facility], [address], [place] 01/03 CMP Total prote in g/dl 5.7 8.2 6.9 FINAL [facility], [address], [place] 01/03 CMP AST/S GOT [iU]/L 0.0 34.0 18 FINAL [facility], [address], [place] 01/03 CMP ALT/S GPT [iU]/L 10.0 49.0 11 FINAL Gradon Adolfo THOMPSON [facility], [address], [place] 01/03 CMP Alkal ine phosp hatas e [iU]/L 46.0 160.0 65 FINAL [facility], [address], [place] 01/03 CBC WBC 10*3/u L 4.4 10.9 1.5 Repeate d Criti carlita Low FINAL Gradon Mata V[facility]-Prin cess [address] [facility] 01/03 CBC RBC 10*6/u L 4.5 6.0 2.46 Low FINAL Gradon Mata VOA-Prin cess [address] [facility] 01/03 CBC HGB g/dL 14.0 17.0 8.3 Low FINAL Gradon Mata VOA-Prin cess [address] [facility] 01/03 CBC HCT % 40.0 54.0 25.5 Low FINAL Gradon Mata VOA-Prin cess [address] [facility] 01/03 CBC MCV fl 80.0 97.0 104 High FINAL Gradon Mata VOA-Prin cess [address] [facility] 01/03 CBC MCH pg 27.0 31.2 33.7 High FINAL Gradon Mata VOA-Prin cess [address] [facility] 01/03 CBC MCHC g/dL 31.8 35.4 32.5 FINAL Gradon Mata VOA-Prin cess [address] [facility] 01/03 CBC PLT 10*3/u L 140.0 440.0 18 Repeate d Criti carlita Low FINAL Gradon Mata VOA-Prin cess [address] [facility] 01/03 CBC MPV fl 7.5 11.5 12.30 High FINAL Gradon Mata VOA-Prin cess [address] [facility] 01/03 CBC Rustam # (ANC) 10*3/u L 2.0 6.9 0.21 Low FINAL Gradon Mata VOA-Prin cess [address] [facility] 01/03 CBC LY # 10*3/u L 0.6 3.4 0.95 FINAL Gradon Mata VOA-Prin cess [address] [facility] 01/03 CBC MO # 10*3/u L 0.0 0.9 0.30 FINAL Gradon Mata VOA-Prin cess [address] [facility] 01/03 CBC EO # 10*3/u L 0.0 0.7 0.01 FINAL Gradon Mata VOA-Prin cess [address] [facility] 01/03 CBC BA # 10*3/u L 0.0 0.2 0.01 FINAL Gradon Mata VOA-Prin cess [address] [facility] 01/03 CBC Rustam % % 37.0 80.0 14.1 Low FINAL Gradon Mata VOA-Prin cess [address] [facility] 01/03 CBC LY % % 10.0 50.0 64.2 High FINAL Gradon Mata VOA-Prin cess [address] [facility] 01/03 CBC MO % % 0.0 12.0 20.3 High FINAL Gradon Mata VOA-Prin cess [address] [facility] 01/03 CBC EO % % 0.0 7.0 0.7 FINAL Gradon Mata VOA-Prin cess [address] [facility] 01/03 CBC BA % % 0.0 2.5 0.7 FINAL Gradon Mata VOA-Prin cess , [address] [facility] 01/03 CBC RDW % 11.6 14.8 16.7 High FINAL Guero KELLEYA-Prin cess [place], [address] [facility] 01/10 CMP Sodiu m mmol/l 136.0 145.0 141 FINAL Gradmigue THOMPSON [facility], [address], [place] 01/10 CMP Potas sium mmol/l 3.5 5.1 4.3 FINAL Gradmigue THOMPSON [facility], [address], [place] 01/10 CMP CO2 mmol/l 20.0 31.0 31 FINAL Gradmigue THOMPSON [facility], [address], [place] 01/10 CMP Chlor prashanth mmol/l 98.0 107.0 106 FINAL Gradmigue THOMPSON [facility], [address], [place] 01/10 CMP BUN mg/dl 9.0 23.0 20 FINAL Gradmigue SmithMata JAY [facility], [address], [place] 01/10 CMP Creat inine mg/dl 0.7 1.3 1.160 FINAL [facility] Smith[facility], [address], [place] 01/10 CMP GFR estim ate 65.00 FINAL Gradon Mata J[facility], [address], [place] 01/10 CMP Gluco se mg/dl 74.0 106.0 105 FINAL Guero THOMPSON [facility], [address], [place] 01/10 CMP Calci um mg/dl 8.7 10.4 9.3 FINAL [facility], [address], [place] 01/10 CMP Album in g/dl 3.4 5.0 4.4 FINAL Gradon Mata SER [facility], [address], [place] 01/10 CMP Bilir ubin, total mg/dl 0.3 1.2 2.7 High FINAL [facility], [address], [place] 01/10 CMP Total prote in g/dl 5.7 8.2 7.0 FINAL Gradon Mata SER [facility], [address], [place] 01/10 CMP AST/S GOT [iU]/L 0.0 34.0 19 FINAL Gradon Adolfo THOMPSON [facility], [address], [place] 01/10 CMP ALT/S GPT [iU]/L 10.0 49.0 11 FINAL Gradon Mata J[facility], [address], [place] 01/10 CMP Alkal ine phosp hatas e [iU]/L 46.0 160.0 74 FINAL Gradon Mata JAY [facility], [address], [place] 01/10 Uric acid mg/dl 3.7 9.2 5.1 FINAL Gradon Adolfo THOMPSON [facility], [address], [place] 01/10 CBC WBC 10*3/u L 4.4 10.9 2.4 Low FINAL Gradon Mata VOA-Prin cess [address] [facility] 01/10 CBC RBC 10*6/u L 4.5 6.0 2.44 Low FINAL Gradon Mata VOA-Prin cess [address] [facility] 01/10 CBC HGB g/dL 14.0 17.0 8.2 Low FINAL Gradon Mata VOA-Prin cess [address] [facility] 01/10 CBC HCT % 40.0 54.0 25.6 Low FINAL Gradon Mata VOA-Prin cess [address] [facility] 01/10 CBC MCV fl 80.0 97.0 105 High FINAL Gradon Mata VOA-Prin cess [address] [facility] 01/10 CBC MCH pg 27.0 31.2 33.6 High FINAL Gradon Mata VOA-Prin cess [address] [facility] 01/10 CBC MCHC g/dL 31.8 35.4 32.0 FINAL Gradon Mata VOA-Prin cess [address] [facility] 01/10 CBC PLT 10*3/u L 140.0 440.0 43 Repeate d Criti carlita Low FINAL Gradon Mata VOA-Prin cess [address] [facility] 01/10 CBC MPV fl 7.5 11.5 11.30 FINAL Gradon Mata VOA-Prin cess [address] [facility] 01/10 CBC Rustam # (ANC) 10*3/u L 2.0 6.9 1.12 Low FINAL Gradon Mata VOA-Prin cess [address] [facility] 01/10 CBC LY # 10*3/u L 0.6 3.4 1.03 FINAL Gradon Mata VOA-Prin cess [address] [facility] 01/10 CBC MO # 10*3/u L 0.0 0.9 0.20 FINAL Gradon Mata VOA-Prin cess [address] 01/10 CBC EO # 10*3/u L 0.0 0.7 0.01 FINAL Gradon Mata VOA-Prin cess [address] [facility] 01/10 CBC BA # 10*3/u L 0.0 0.2 0.03 FINAL Gradon Mata VOA-Prin cess [place] 01/10 CBC Rustam % % 37.0 80.0 46.8 FINAL Guero Mata VOA-Prin cess [place] 01/10 CBC LY % % 10.0 50.0 43.1 FINAL Guero Mata VOA-Prin cess [place] 01/10 CBC MO % % 0.0 12.0 8.4 FINAL Guero Mata VOA-Prin cess [place] 01/10 CBC EO % % 0.0 7.0 0.4 FINAL Guero Mata VOA-Prin cess [address] 01/10 CBC BA % % 0.0 2.5 1.3 FINAL Guero Mata VOA-Prin cess [address] 01/10 CBC RDW % 11.6 14.8 18.2 High FINAL Guero Mata VOA-Prin cess [address] [facility] Medications Date Name Route Dose [...] * Consult Patient Name: DOUG CARTER Location: [facility] : 1945 Seen By:?? Guero Mata MD [...] did not show any increase in blasts.?? [facility] myeloid panel showed ASXL1, BRAF L597, SRS [...] caner Social History: ?Lives [facility]. Quit smoking 1989. Drinks etoh daily.?? [...] limits.?? Creatinine was also normal. -Patient established [facility] Radha Vick at [facility]. Her phone is [phone].-Will check labs today and arrange blood transfusion for hgb <7 and plt <10.?? -Patient plans to return to [place] in 2 weeks but he will come back to [place] next year.?? Told him we would be [...]
--- OUTSIDE RECORDS SUMMARY | 2024-07-19 17:17 | XMS_ITS | CCD ---
Author Name Interface, [id number] lity Address [address] [place] [address] Organization [facility] Address [address] [place] [address] Care Team Providers Care Neon Molder Name Role Phone Adolfo Guero Unavailable Unavailable Josef Duncan Unavailable Unavailable Care Plan Date Type Value 01/11/2024 APPOINTMENT TREATMENT 1 HR 01/11/2024 APPOINTMENT LAB 15 MIN 01/04/2024 APPOINTMENT PBR 30 MIN 01/04/2024 APPOINTMENT NEW PT CONSULT 6 0 MIN 01/04/2024 APPOINTMENT LAB 15 MIN 01/04/2024 LABORDER CBC w/ auto diff 01/04/2024 LABORDER CMP 01/04/2024 LABORDER Uric acid 01/11/2024 LABORDER CMP 01/11/2024 LABORDER Uric acid 01/11/2024 LABORDER CBC w/ auto diff Reason for Visit TREATMENT 1 HR Encounters Date Name 01/11/2024 LAB 15 MIN Diagnostic Results Date Type Test Units Lower Limit Upper Limit Result Flag Comments Status Ordered By Specimen Source Lab Address 01/10 CBC Rustam # (ANC) 10*3/u L 2.0 6.9 1.12 Low FINAL Gradon Mata VOA-Prin cess [address] [facility] 01/10 CBC MCV fl 80.0 97.0 105 High FINAL Gradon Mata VOA-Prin cess [place] [facility] 01/10 CBC MO # 10*3/u L 0.0 0.9 0.20 FINAL Gradon Mata VOA-Prin cess [place] [facility] 01/10 CBC MO % % 0.0 12.0 8.4 FINAL Gradon Mata VOA-Prin cess [address] [facility] 01/10 CBC EO # 10*3/u L 0.0 0.7 0.01 FINAL Gradon Mata VOA-Prin cess [address] [facility] 01/10 CBC EO % % 0.0 7.0 0.4 FINAL Gradon Mata VOA-Prin cess [address] [facility] 01/10 CBC RBC 10*6/u L 4.5 6.0 2.44 Low FINAL Gradon Mata VOA-Prin cess [address] [facility] 01/10 CBC MPV fl 7.5 11.5 11.30 FINAL Gradon Mata VOA-Prin cess [address] [facility] 01/10 CBC WBC 10*3/u L 4.4 10.9 2.4 Low FINAL Gradon Mata VOA-Prin cess [address] [facility] 01/10 CBC PLT 10*3/u L 140.0 440.0 43 Repeate d Criti carlita Low FINAL Gradon Mata VOA-Prin cess [address] [facility] 01/10 CBC BA % % 0.0 2.5 1.3 FINAL Gradon Mata VOA-Prin cess [address] [facility] 01/10 CBC BA # 10*3/u L 0.0 0.2 0.03 FINAL Gradon Mata VOA-Prin cess [address] [facility] 01/10 CBC HGB g/dL 14.0 17.0 8.2 Low FINAL Gradon Mata VOA-Prin cess [address] [facility] 01/10 CBC RDW % 11.6 14.8 18.2 High FINAL Gradon Mata VOA-Prin cess [address] [facility] 01/10 CBC LY % % 10.0 50.0 43.1 FINAL Gradon Adolfo VOA-Prin cess [address] [facility] 01/10 CBC MCH pg 27.0 31.2 33.6 High FINAL Gradon Adolfo VOA-Prin cess [address] [facility] 01/10 CBC LY # 10*3/u L 0.6 3.4 1.03 FINAL Gradon Adolfo VOA-Prin cess [address] [facility] 01/10 CBC MCHC g/dL 31.8 35.4 32.0 FINAL Gradon Adolfo VOA-Prin cess [place] [facility] 01/10 CBC HCT % 40.0 54.0 25.6 Low FINAL Gradon Adolfo VOA-Prin cess [address] [facility] 01/10 CBC Rustam % % 37.0 80.0 46.8 FINAL Gradon Adolfo VOA-Prin cess [address] [facility] 01/10 CMP Alkal ine phosp hatas e [iU]/L 46.0 160.0 74 FINAL Gradon Adolfo THOMPSON [facility], [address], [place] 01/10 CMP GFR estim ate 65.00 FINAL Gradon Adolfo THOMPSON [facility], [address], [place] 01/10 CMP Calci um mg/dl 8.7 10.4 9.3 FINAL Gradon Mata SER [facility], [address], [place] 01/10 CMP ALT/S GPT [iU]/L 10.0 49.0 11 FINAL Gradon Adolfo SER [facility], [address], [place] 01/10 CMP CO2 mmol/l 20.0 31.0 31 FINAL Gradon Adolfo SER [facility], [address], [place] 01/10 CMP Gluco se mg/dl 74.0 106.0 105 FINAL [facility] JAY [facility], [address], [place] 01/10 CMP Chlor prashanth mmol/l 98.0 107.0 106 FINAL [facility], [address], [place] 01/10 CMP Total prote in g/dl 5.7 8.2 7.0 FINAL [facility], [address], [place] 01/10 CMP BUN mg/dl 9.0 23.0 20 FINAL [facility], [address], [place] 01/10 CMP Creat inine mg/dl 0.7 1.3 1.160 FINAL [facility], [address], [place] 01/10 CMP AST/S GOT [iU]/L 0.0 34.0 19 FINAL [facility], [address], [place] 01/10 CMP Album in g/dl 3.4 5.0 4.4 FINAL [facility], [address], [place] 01/10 CMP Bilir ubin, total mg/dl 0.3 1.2 2.7 High FINAL [facility], [address], [place] 01/10 CMP Sodiu m mmol/l 136.0 145.0 141 FINAL [facility], [address], [place] 01/10 CMP Potas sium mmol/l 3.5 5.1 4.3 FINAL [facility], [address], [place] 01/10 Uric acid mg/dl 3.7 9.2 5.1 FINAL Guero Mata SER [facility], [address], [place] Medications Date Name Route Dose Frequency Instructions Start Date End Date Status Lisinopril Oral 1.0 tablet once a day active Allopurinol Oral 1.0 tablet once a day active Simvastatin Oral 1.0 tablet once a day active Acyclovir Oral 1.0 tablet once a day active Problems Diagnosis Status Date of Diagnosi s AML Active Procedures Date Category Name Instructions Status 01/11/2024 Physician Order RTC nurse arrange bloo d transfusion for hgb<7 or plt 10. Ordered Social History Date Name Value Sex Male Vital Signs Date Type Value 01/11/2024 Height 67.00 01/11/2024 Weight 238.20 01/11/2024 Intravascular Systolic 120 01/11/2024 Intravascular Diastolic 62 01/11/2024 Respiratory Rate 18.00 01/11/2024 Heart Beat 95.00 01/11/2024 Body Temperature 97.30 01/11/2024 Pain Scale 0.00 01/11/2024 Oxygen Saturation 98.00 01/11/2024 BMI 37.31
--- OUTSIDE RECORDS SUMMARY | 2024-07-19 17:17 | XMS_ITS | CCD ---
Author Name Interface, [id number] [facility] Address [address] [id number] Organization [facility] Address [address] [place] [address] Care Team Providers Care [facility] Name Role Phone Guero Mata Unavailable Unavailable Josef Duncan Unavailable Unavailable Care Plan Reason for Visit Encounters Diagnostic Results Medications Problems Procedures Social History Vital Signs
[2024-07-20 14:58] LABS: Hepatitis B Viral DNA Qn - cp NOT DETECTED Log IU/mL (NOT DETECTED); Hepatitis B Viral DNA Qn-IU/mL NOT DETECTED (NOT DETECTED)
== END 2024-07-19 15:19 | disposition home or self-care (01) ==
LOC: HO.LAB 15:18
PROVIDERS: PCP Internal Medicine; Visit Provider Internal Medicine Medical Oncology
DX: R76.8 Other specified abnormal immunological findings in serum (principal)
CPT/HCPCS: 36415; 87517

== ENCOUNTER 2024-12-22 15:49 | Outpatient (REF) | payer MEDICARE, SELFPAY ==
--- NOTE | ~2024-12-22 | US_ITS ---
EXAMINATION: US TRIPLEX LOWER EXTREMITY, RIGHT CLINICAL INFORMATION: Thrombophlebitis, painful lumps in the right thigh COMPARISON: None available. TECHNIQUE: Color-flow triplex imaging with spectral analysis and compression Doppler were performed on the right lower extremity. FINDINGS: Respiratory variation, normal compression and augmented flow are noted throughout the right lower extremity. The visualized common femoral vein, superficial femoral vein, profunda femoral vein, popliteal vein and midcalf peroneal and posterior tibial venous segments show no evidence of deep venous thrombosis. In the region where the patient has painful lump in the thigh, there is a varicose vein with heterogeneous material and no flow. Thrombosed varicosities are present between the mid thigh and midcalf. Minimal flow is documented in a varicosity in the mid calf. There is no Miller's cyst. US/US venous duplex LE RT IMPRESSION: Superficial venous thrombosis involving varicosities in the mid thigh through mid calf region. No evidence of deep venous thrombosis involving the right lower extremity. Electronically signed by: Adal Pearce MD 12/22/2024 04:43 PM EDT
--- OUTSIDE RECORDS SUMMARY | 2024-12-22 19:30 | XMS_ITS | CCD ---
Author Name Interface, [id number] lity Address [address] [place] [address] Organization [facility] Address [address] [place] [address] Care Team Providers Care Vehicle Assembly Inspector Name Role Phone Adolfo SHETH, Guero Unavailable Unavailable Perla SHETH, Anita Unavailable Unavailab le Care Plan Date Type Value 01/11/2024 APPOINTMENT LAB [...] Low FINAL Gradon Mata VOA-Prin cess [address] [facility] 01/10 CBC MCV fl 80.0 97.0 105 High FINAL Gradon Mata VOA-Prin cess A[address]1947 [address] [facility] 01/10 CBC MO # 10*3/u L 0.0 0.9 0.20 FINAL Gradon Mata VOA-Prin cess A[address]1947 [address] [facility] 01/10 CBC MO % % 0.0 12.0 8.4 FINAL Gradon Mata VOA-Prin cess [address] [facility] 01/10 CBC EO # 10*3/u L 0.0 0.7 0.01 FINAL Gradon Mata VOA-Prin cess [address] [facility] 01/10 CBC EO % % 0.0 7.0 0.4 FINAL Gradon Mata VOA-Prin cess [address] [facility] 01/10 CBC RBC 10*6/u L 4.5 6.0 2.44 Low FINAL Gradon Mata VOA-Prin cess [address] [facility] 01/10 CBC MPV fl 7.5 11.5 11.30 FINAL Gradon Mata VOA-Prin cess [address] [facility] 01/10 CBC WBC 10*3/u L 4.4 10.9 2.4 Low FINAL Gradon Mata VOA-Prin cess [address] [facility] 01/10 CBC PLT 10*3/u L 140.0 440.0 43 Repeate d Criti carlita Low FINAL Gradon Mata VOA-Prin cess [address] [facility] 01/10 CBC BA % % 0.0 2.5 1.3 FINAL Gradon Mata VOA-Prin cess [address] [facility] 01/10 CBC BA # 10*3/u L 0.0 0.2 0.03 FINAL Gradon Mata VOA-Prin cess [address] [facility] 01/10 CBC HGB g/dL 14.0 17.0 8.2 Low FINAL Gradon Mata VOA-Prin cess [address] [facility] 01/10 CBC RDW % 11.6 14.8 18.2 High FINAL Gradon Mata VOA-Prin cess [address] [facility] 01/10 CBC LY % % 10.0 50.0 43.1 FINAL Gradon Adolfo VOA-Prin cess [address] [facility] 01/10 CBC MCH pg 27.0 31.2 33.6 High FINAL Gradon Adolfo VOA-Prin cess [address] [facility] 01/10 CBC LY # 10*3/u L 0.6 3.4 1.03 FINAL Gradon Adolfo VOA-Prin cess [address] [facility] 01/10 CBC MCHC g/dL 31.8 35.4 32.0 FINAL Gradon Adolfo VOA-Prin cess [address] [facility] 01/10 CBC HCT % 40.0 54.0 25.6 Low FINAL Gradon Adolfo VOA-Prin cess [address] [facility] 01/10 CBC Rustam % % 37.0 80.0 46.8 FINAL Gradon Adolfo VOA-Prin cess [address] [facility] 01/10 CMP Alkal ine phosp hatas e [iU]/L 46.0 160.0 74 FINAL Gradon Adolfo SER [facility] [place], [address], [place] 01/10 CMP GFR estim ate 65.00 FINAL Gradon Mata SER [facility] [place], [address], [place] 01/10 CMP Calci um mg/dl 8.7 10.4 9.3 FINAL Gradon Mata SER [facility] [place], [address], [place] 01/10 CMP ALT/S GPT [iU]/L 10.0 49.0 11 FINAL Gradon Adolfo SER [facility] [place], [address], [place] 01/10 CMP CO2 mmol/l 20.0 31.0 31 FINAL Gradon Adolfo SER [facility], [address], [place] 01/10 CMP Gluco se mg/dl 74.0 106.0 105 [facility], [address], [place] 01/10 CMP Chlor prashanth mmol/l 98.0 107.0 106 FINAL [facility], [address], [place] 01/10 CMP Total prote in g/dl 5.7 8.2 7.0 FINAL [facility], [address], [place] 01/10 CMP BUN mg/dl 9.0 23.0 20 [facility], [address], [place] 01/10 CMP Creat inine mg/dl 0.7 1.3 1.160 FINAL [facility], [address], [place] 01/10 CMP AST/S GOT [iU]/L 0.0 34.0 19 FINAL [facility] JAY [facility], [address], [place] 01/10 CMP Album in g/dl 3.4 5.0 4.4 FINAL [facility], [address], [place] 01/10 CMP Bilir ubin, total mg/dl 0.3 1.2 2.7 High FINAL [facility], [address], [place] 01/10 CMP Sodiu m mmol/l 136.0 145.0 141 FINAL [facility] JAY [facility], [address], [place] 01/10 CMP Potas sium mmol/l 3.5 5.1 4.3 FINAL [facility] [place], [address], [place] 01/10 Uric acid mg/dl 3.7 9.2 5.1 FINAL [facility], [address], [place] Medications Date Name Route Dose Frequency Instructions Start Date End Date Status Lisinopril Oral 1.0 tablet once a day active Allopurinol Oral 1.0 tablet once a day active Simvastatin Oral 1.0 tablet once a day active Acyclovir Oral 1.0 tablet once a day active Problems Diagnosis Status Date of Diagnosis Resolution Date AML Active Procedures Date Category Name Instructions Status 01/11/2024 Physician Order RTC nurse arrange bloo d transfusion for hgb<7 or plt 10. Ordered Social History Date Name Value Sex Male Vital Signs Date Type Value 01/04/2024 Body [...] * Consult Patient Name: DOUG CARTER Location: [facility] : 1945 Seen By:? Guero Mata MD Attending Provider: Guero Escalante Date of Service: 01/04/2024 Note to patient:?The purpose of this note is to communicate [...] Patient was found to be thrombocytopenic and 2021.? Blood counts were downtrending so bone marrow biopsy was performed 11/13/2022 which did not show any increase in blasts.? [employer] myeloid panel showed ASXL1, BRAF L597, SRS F2, P95H, TET Q 731T.? No alterations in FLT3, IDH 1, IDH 2, NPM1.? She was started on hydroxyurea 500 mg once daily in March 2023 and continue this until September 2023.? 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 Blasts were 27% of the aspirate.? Repeat NGS testing was requested.? He was started on azacitidine 75 mg/m? for days 1 through 7 with venetoclax.? He was started on antimicrobial prophylaxis with ciprofloxacin 500 mg twice daily and acyclovir 400 mg twice daily. Patient began treatment with subcutaneous azacitidine on 12/14/2023.? He began p.o. venetoclax on12/20 along with allopurinol and acyclovir. Did not receive aztizanidine on day 6 or 7 of treatment due to severe cytopenia and requirement of blood transfusion.? He was started on venetoclax but asked to stay on the 200 mg daily dose. Venetoclax was then held the week of Just 1st because of cytopenias.? Most recent labs on 12/16/2023 showed hemoglobin of 8.5, white blood cell count of 3.2 and platelet count of 24.? PTT and INR within normal limits.? Creatinine was also normal. Past Medical History: HTN, HLD and BPH AML Medications: ? Allergies: ? Family History: ?Mother had esophageal cancer Brother had kidney cancer Sister had kidney cancer Sister with melanoma Brother with adrenal caner Social History: ?Lives [place]. Quit smoking 1989. Drinks etoh daily.? Vitals: Blood pressure: 128/64, Sitting, L arm, Regular, Pulse: 80, Temperature: 97.3 F, Respirations: 14, O2 sat: 98%, At Rest, Room Air, Pain Scale: 0, Height: 67 in, Weight: 237 lb, BSA: 2.25, BMI: 37.12 kg/m2 Physical Exam: Gen: A/O x 3, no acute distress HEENT:? PERRLA, anicteric, no oral lesions, mmm, no LAD CV:? RRR no murmurs Pulm:? CTAB no wheeze, rales GI:? +BS, non-tender, no HSM, no masses Ext:? no joint deformities, normal ROM Skin: no rashes Neuro: no focal deficits Psych: normal affect Impression and Plan: AML -Bone marrow biopsy was performed 11/13/2022 which did not show any increase in blasts.? [employer] myeloid panel showed ASXL1, BRAF L597, SRS F2, P95H, TET Q 731T.? No alterations in FLT3, IDH1, IDH 2, NPM1.? She was started on hydroxyurea 500 mg once daily in March 2023 and continue this until September 2023.? 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 Blasts were 27% of the aspirate.? Repeat NGS testing was requested.? -Started on azacitidine 75 mg/m? for days 1 through 7 with venetoclax.? He was started on antimicrobial prophylaxis with ciprofloxacin 500 mg twice daily and acyclovir 400 mg twice daily. -Patient began treatment with subcutaneous azacitidine on 12/14/2023.? He began p.o. venetoclax on 12/20 along with allopurinol and acyclovir. -Did not receive atizanidine on day 6 or 7 of treatment due to severe cytopenia and requirement of blood transfusion.? He was started on venetoclax but asked to stay on the 200 mg daily dose. -Most recent labs on 12/16/2023 showed hemoglobin of 8.5, white blood cell count of 3.2 and plateletcount of 24.? PTT and INR within normal limits.? Creatinine was also normal. -Patient established [facility] Radha Vick at [facility]. Her phone is [phone].-Will check labs today and arrange blood transfusion for hgb <7 and plt <10. -Patient plans to return to [place] in 2 weeks but he will come back to [place] next year.? Told him we would be happy to check his labs again when he is here. CC: ? * AML Laboratory: Lab Results 01/04/2024 CBC WBC x 10^3/uL 1.5 Repeated (LL) RBC x 10^6/uL 2.46 (L) HGB g/dL 8.3 (L) HCT % 25.5 (L) MCV fL 104 (H) MCH pg 33.7 (H) MCHC g/dL 32.5 RDW % 16.7 (H) PLT x 10^3/uL 18 Repeated (LL) MPV fL 12.30 (H) Rustam % 14.1 (L) LY % 64.2 (H) MO % 20.3 (H) EO % 0.7 Rustam # (ANC) x 10^3/uL 0.21 (L) BA % 0.7 MO # x 10^3/uL 0.30 EO # x 10^3/uL 0.01 BA # x 10^3/uL 0.01 LY # x 10^3/uL 0.95 ? New Orders: [...]
== END 2024-12-22 15:50 | disposition home or self-care (01) ==
LOC: HO.US 15:49
PROVIDERS: PCP Internal Medicine; Visit Provider Internal Medicine
DX: R22.41 Localized swelling, mass and lump, right lower limb (principal)
CPT/HCPCS: 93971

== ENCOUNTER → 2024-12-22 15:54 | Outpatient (BNV) | payer MEDICARE, SELFPAY | PROVIDERS: PCP Internal Medicine; Visit Provider Radiology Diagnostic Radiology | DX: I82.401 Acute embolism and thrombosis of unspecified deep veins of right lower extremity (principal) | CPT/HCPCS: 93971 ==